=== PATIENT | female | born 1990 | race Caucasian/White ===

== ENCOUNTER 2016-11-25 13:53 | Inpatient (IN) | payer MEDICARE ==
--- NOTE | ~2016-11-25 | PN ---
Unit #: [id number] #: [id number] Patient: AISLINN MATTSON [id number] [facility] [address] [place] [address] [id number] MR#: [id number] NAME: AISLINN MATTSON ROOM: 30 Age: 26 Sex: F Admission Date: 11/25/2016 : 1990 Attending Physician: Benjy Pierre M.D. Admitting Physician: Benjy Pierre M.D. Primary Care Physician: Primary Care Physician Michelle CARRILLO NOTES DATE 12/09/2016 DISCUSSION The patient is more dysphoric and anxious when seen today. She continues to express concerns regarding her post discharge disposition. She states that she is working assiduously with her social media content specialist Mr. Amaro on this issue. She continues to endorse positive suicidal ideation and requested medications adjustment. I have explained to the patient that I do not plan to make a change in medications at this point as her symptoms seem to be more reactive in nature than ones which would be responsive to medication adjustment. Dictated by... Benjy Pierre M.D. CB/ny TD: 12/09/2016 15:48 JOB #: [id number] AMPARO CARRILLO NOTES Page 1 of 1 X Benjy Pierre MD PROGRESS NOTE
--- NOTE | ~2016-11-25 | PN ---
Unit #: [id number] #: [id number] Patient: AISLINN MATTSON [id number] [facility] [address] [place] [address] [id number] MR#: [id number] NAME: AISLINN MATTSON ROOM: 30 Age: 26 Sex: F Admission Date: 11/25/2016 : 1990 Attending Physician: Benjy Pierre M.D. Admitting Physician: Benjy Pierre M.D. Primary Care Physician: Primary Care Physician Michelle CHRISTENSEN PROGRESS NOTES DATE 12/01/2016 DISCUSSION The patient is abed today. She continues to complain of dysphoric mood secondary to financial stressors related to her disability. We will ask the patient to discuss the situation with her social media developer. We have redirected her expectations regarding what this facility can do with regards to this situation. Dictated by... Benjy Pierre M.D. CB/jose TD: 12/01/2016 18:43 JOB #: [id number] AMPARO CARRILLO NOTES Page 1 of 1 X Benjy Pierre MD PROGRESS NOTE
--- NOTE | ~2016-11-25 | PN ---
Unit #: [id number] #: [id number] Patient: AISLINN MATTSON [id number] [facility] [address] [place] [address] [id number] MR#: [id number] NAME: AISLINN MATTSON ROOM: P201 Age: 26 Sex: F Admission Date: 11/25/2016 : 1990 Attending Physician: Benjy Pierre M.D. Admitting Physician: Benjy Pierre M.D. Primary Care Physician: Primary Care Physician Michelle CHRISTENSEN PROGRESS NOTES DATE 11/28/2016 DISCUSSION The patient is active within the therapeutic milieu and is a bit brighter when seen today. She continues to express grave concerns regarding her current homeless status and is making assiduous efforts for his fdc house placement. She is continuing to voice some thoughts of suicide secondary to her current homeless situation. Dictated by... Benjy Pierre M.D. CB/antoinette TD: 11/29/2016 08:01 JOB #: [id number] [facility] PROGRESS NOTES X Benjy Pierre MD PROGRESS NOTE
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
--- NOTE | ~2016-11-25 | PN ---
Unit #: [id number] #: [id number] Patient: AISLINN MATTSON [id number] [facility] [address] [place] [address] [id number] I MR#: [id number] NAME: AISLINN MATTSON ROOM: 30 Age: 26 Sex: F Admission Date: 11/25/2016 : 1990 Attending Physician: Benjy Pierre M.D. Admitting Physician: Benjy Pierre M.D. Primary Care Physician: Primary Care Physician Michelle CARRILLO NOTES DATE 12/07/2016 DISCUSSION The patient continues to complain of dysphoric mood. She is also today complaining of severe constipation and possible symptoms of vaginitis. I will ask for a medical consult related to these issues. Suicidal precautions remain in place as the patient continues to endorse positive suicidal thinking. Dictated by... Benjy Pierre M.D. CB/jose TD: 12/08/2016 02:07 JOB #: [id number] AMPAR[facility] CARRILLO NOTES Page 1 of 1 X Benjy Pierre MD PROGRESS NOTE
--- NOTE | ~2016-11-25 | PN ---
Unit #: [id number] #: [id number] Patient: AISLINN MATTSON [id number] [facility] [address] [place] [address] [id number] I MR#: [id number] NAME: AISLINN MATTSON ROOM: 30 Age: 26 Sex: F Admission Date: 11/25/2016 : 1990 Attending Physician: Benjy Pierre M.D. Admitting Physician: Benjy Pierre M.D. Primary Care Physician: Primary Care Physician Michelle CARRILLO NOTES DATE 12/03/2016 DISCUSSION The patient had an episode this morning wherein she was demanding medication for anxiety and agitation. Instead, the patient was informed that she could go to the quiet room and continue to scream and yell which she did without incident. I have spoken today with the patient regarding her expectations, and every mood be mitigated with medication, and she seems strangely accepting of this. She has done some work with her social insurance adviser regarding possible disposition options, and discharge could take place as early as tomorrow. Dictated by... Benjy Pierre M.D. CB/antoinette TD: 12/03/2016 14:44 JOB #: [id number] [facility] PROGRESS NOTES Page 1 of 1 X Benjy Pierre MD PROGRESS NOTE
--- NOTE | ~2016-11-25 | DS ---
Unit #: [id number] #: [id number] Patient: AISLINN MATTSON [id number] [facility] [address] [place] [address] [id number] I MR#: [id number] NAME: AISLINN MATTSON ROOM: P106 Age: 26 Sex: F Admission Date: 11/25/2016 : 1990 Discharge Date: Attending Physician: Benjy Pierre M.D. Primary Care Physician: Primary Care Physician No DISCHARGE SUMMARY REASON FOR ADMISSION The patient is a 26-year-old white female, admitted to the hospital complaining of increasing auditory hallucinations and suicidal thinking. HOSPITAL COURSE The patient was admitted to the [facility] and placed on suicide precautions. She was continued on previously prescribed medications including Neurontin, Vistaril, Seroquel, Lamictal, Symbicort, Proventil, Claritin, and melatonin. Lamictal was eventually titrated to a final dose of 200 mg at h.s. and Seroquel titrated to a final dose of 100 mg b.i.d. and 400 mg at h.s. The patient's behavior remained difficult while hospitalized. There was significant concern that the patient was fabricating symptoms including auditory hallucinations in order to extend her stay in the hospital given the fact that she has been unable financially to afford housing outside the hospital. On several occasions, the patient required holds and room lockout, and transfer to the [address] [place] [address] became necessary. Room lockout was ordered on 12/11/2016 as the patient was showing absolutely no progress towards discharge and was continued to complain of auditory hallucinations. On 12/13/2016, the patient reported that was much much brighter. She denied suicidal ideation and stated that she had made arrangements for housing outside the hospital. She was not at that point felt to meet criteria for involuntary hospitalization. As per her request, discharge was ordered. FINAL DIAGNOSES Bipolar disorder, depressed phase; alcohol use disorder; opioid use disorder; borderline personality disorder. Asthma and environmental allergies. DISPOSITION ON DISCHARGE The patient is discharged on the following medications: Seroquel 100 mg b.i.d., 400 mg at bedtime for mood stabilization; Lamictal 200 mg at bedtime for mood stabilization; Flagyl 500 mg b.i.d. for vaginitis; MiraLAX 17 g daily for constipation; Neurontin 800 mg q.i.d. for mood stabilization; Proventil HFA 2 puffs q.4 hours p.r.n. shortness of air; melatonin 6 mg at h.s. p.r.n. insomnia; Claritin 10 mg once daily for environmental allergies; Symbicort 2 puffs b.i.d. for shortness of air; Colace 100 mg daily for constipation; and Vistaril 50 mg q.6 hours p.r.n. anxiety. DISCHARGE INSTRUCTIONS No dietary or physical restrictions were placed upon the patient at the time of discharge. Unit #: [id number] #: [id number] Patient: AISLINN MATTSON FOLLOWUP Followup will take place through the auspices of community mental health resources. PROGNOSIS The patient's prognosis is considered somewhat guarded, given her lack of resources, lack of community support, and profound characterologic pathology coupled with less than optimal coping skills and intelligence. Dictated by... Benjy Pierre M.D. CB/lula TD: 12/13/2016 18:14 JOB #: [id number] DISCHARGE SUMMARY Page 1 of 1 X Benjy Pierre MD X DISCHARGE SUMMARY
--- NOTE | ~2016-11-25 | PN ---
Unit #: [id number] #: [id number] Patient: AISLINN MATTSON [id number] [facility] [address] [place] [address] [id number] I MR#: [id number] NAME: AISLINN MATTSON ROOM: 30 Age: 26 Sex: F Admission Date: 11/25/2016 : 1990 Attending Physician: Benjy Pierre M.D. Admitting Physician: Benjy Pierre M.D. Primary Care Physician: Primary Care Physician Michelle CHRISTENSEN PROGRESS NOTES DATE 12/05/2016 DISCUSSION The patient continues to lament her living and financial situations. She reports that she is working with her social services coordinator regarding possible placement in a half-way or other supervised facility but continues to lament the financial obligations inherent therein. She continues to endorse positive suicidal ideation, and her participation within therapeutic milieu remains poor. I have again confronted the patient today regarding her frequent napping and the deleterious effect that it is having on her nighttime sleep. Dictated by... Benjy Pierre M.D. CB/antoinette TD: 12/05/2016 14:50 JOB #: [id number] [facility] PROGRESS NOTES Page 1 of 1 X Benjy Pierre MD PROGRESS NOTE
--- NOTE | ~2016-11-25 | CO ---
Unit #: [id number] #: [id number] Patient: AISLINN MATTSON [id number] [place] [address] [id number] MR#: [id number] NAME: AISLINN MATTSON ROOM: 30 Age: 26 Sex: F Admission Date: 11/25/2016 : 1990 Attending Physician: Benjy Pierre M.D. Primary Care Physician: Primary Care Physician No Consultation Date: 12/07/2016 CONSULTATION REPORT ORDERING PROVIDER Dr. Pierre. REASON FOR CONSULTATION Vaginitis and constipation. SUBJECTIVE The patient reports that she has had vaginal odor off and on for 3 days with yellowish discharge. She has a history of herpes, but no other sexually transmitted infections. She denies itching or burning, and has no urinary complaints. She does not douche. She reports that she has several sexual partners. The patient also reports a history of constipation and she frequently has to use laxatives to have a bowel movement. She has not had a bowel movement in 3 days. OBJECTIVE Vaginal examination was deferred. ASSESSMENT 1. Vaginitis. 2. Constipation. PLAN Plan is to get a urine gonorrhea and chlamydia and start the patient on Flagyl. We will also do MiraLAX for her constipation. Dictated by... Geneva Leonardo A.P.R.N. for Christina Mcmahan/lula TD: 12/07/2016 20:47 JOB #: [id number] Unit #: [id number] #: [id number] Patient: AISLINN MATTSON CONSULTATION REPORT Page 1 of 1 X GENEVA LEONARDO APRN CONSULTATION REPORT
--- NOTE | ~2016-11-25 | PN ---
Unit #: [id number] #: [id number] Patient: AISLINN MATTSON [id number] [facility] [address] [place] [address] [id number] MR#: [id number] NAME: AISLINN MATTSON ROOM: 30 Age: 26 Sex: F Admission Date: 11/25/2016 : 1990 Attending Physician: Benjy Pierre M.D. Admitting Physician: Benjy Pierre M.D. Primary Care Physician: Primary Care Physician Michelle CHRISTENSEN PROGRESS NOTES DATE 12/06/2016 DISCUSSION The patient continues to complain of anxiety, poor sleep and hopelessness related to her disposition situation. She continues to endorse positive suicidal ideation. Realistic expectations of inpatient care are discussed with the patient today. Dictated by... Benjy Pierre M.D. CB/ny TD: 12/06/2016 15:34 JOB #: [id number] [facility] PROGRESS NOTES Page 1 of 1 X Benjy Pierre MD PROGRESS NOTE
--- NOTE | ~2016-11-25 | PN ---
Unit #: [id number] #: [id number] Patient: AISLINN MATTSON [id number] [facility] [address] [place] [address] [id number] MR#: [id number] NAME: AISLINN MATTSON ROOM: 30 Age: 26 Sex: F Admission Date: 11/25/2016 : 1990 Attending Physician: Benjy Pierre M.D. Admitting Physician: Benjy Pierre M.D. Primary Care Physician: Primary Care Physician Michelle CHRISTENSEN PROGRESS NOTES DATE 12/04/2016 DISCUSSION The patient continues to express frustration and dysphoric mood and hopelessness related to her frustrations with her inability to gain housing. She continues to endorse positive suicidal ideation. She requests an increase in Lamictal 200 mg a day, and this will be so ordered. Suicide precautions remain in place. Dictated by... Benjy Pierre M.D. CB/antoinette TD: 12/04/2016 14:43 JOB #: [id number] [facility] PROGRESS NOTES Page 1 of 1 X Benjy Pierre MD PROGRESS NOTE
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
--- NOTE | ~2016-11-25 | PA ---
Unit #: [id number] #: [id number] Patient: AISLINN MATTSON [id number] [facility] [address] [place] [address] [id number] MR#: [id number] NAME: AISLINN MATTSON ROOM: P252 Age: 26 Sex: F Admission Date: 11/25/2016 : 1990 Date of Assessment: 11/26/2016 Attending Physician: Benjy Pierre M.D. Admitting Physician: Benjy Pierre M.D. Primary Care Physician: Primary Care Physician No PSYCHIATRIC ASSESSMENT IDENTIFYING INFORMATION The patient is a 26-year-old single white female, admitted in transfer from [facility] reporting suicidal ideation. INFORMANT(S) Patient, reliability is fair. CHIEF COMPLAINT "I haven't been honest with my caretakers." HISTORY OF PRESENT ILLNESS The patient is a 26-year-old white female, admitted to the [address] [place] [address] unit after she had presented to [facility] voicing positive suicidal ideation. The patient reports that she has been off of her medicines for some time although she claims to have been out of Lamictal for only "three days." She reports that she had recently been prescribed Latuda but reports that this medication had caused intolerable nausea and that she had stopped the medication. The patient reports that she has been using alcohol and "just about anything I can get my hands on since outside the hospital" and has been less than optimally truthful with previous providers including this provider regarding her substance use. The patient's current psychotropic medications include, Lamictal, Seroquel, Neurontin, Symbicort, Proventil, Claritin, melatonin, and Vistaril. For a more complete history of present illness please refer to previously dictated notes. PAST PSYCHIATRIC HISTORY Reviewed and no changes. PAST MEDICAL HISTORY Reviewed and no changes. MEDICATIONS 1. Melatonin 2. Seroquel 3. Symbicort 4. Proventil HFA 5. Claritin 6. Melatonin 7. Vistaril ALLERGIES Topamax and lithium. Unit #: [id number] #: [id number] Patient: AISLINN MATTSON FAMILY HISTORY Noncontributory. SOCIAL HISTORY The patient is currently homeless. She reports substance use as noted previously, and is a smoker. MENTAL STATUS EXAM At this time reveals the patient to be an obese white female, appearing her stated age. She is in no apparent physical distress at the time of the examination. She is awake, alert, and oriented in all spheres. Her mood is dysphoric. Her affect constricted. Speech is generally relevant and coherent. There are no gross deficits to memory or cognition noted. Intelligence is judged to be in the average range based on fund of knowledge. The patient is cooperative during the interview. She is currently endorsing positive suicidal ideation. She denies homicidal ideation. She denies any psychotic symptoms. Her judgment and insight appear to be at baseline. ASSETS To be assessed. LIABILITIES Lack of resources, homelessness, and ongoing substance use. DIAGNOSTIC IMPRESSION [place] I: Bipolar disorder, depressed phase. Alcohol use disorder. Opioid use disorder. [place] II: Borderline personality disorder. [place] III: Asthma. Environmental allergies. TREATMENT PLAN We will restart the patient's prior medications. I have spoken today frankly with the patient regarding the danger of increasing her Lamictal as she has been off the medication for more than five days. She assures this physician that she has only been off the medication for three days. We will, therefore go ahead and increase the Lamictal to 150 mg and continuing other previously prescribed medications. I will move the patient to a unit where she can undergo drug and alcohol counseling and suicide precautions remain in place. ESTIMATED LENGTH OF STAY IN THE HOSPITAL [id number] days. Dictated by... Benjy Pierre M.D. BARTOLO/cindy TD: 11/26/2016 12:25 JOB #: [id number] Unit #: [id number] #: [id number] Patient: AISLINN MATTSON PSYCHIATRIC ASSESSMENT X Benjy Pierre MD X PSYCHIATRIC ASSESSMENT
--- NOTE | ~2016-11-25 | PN ---
Unit #: [id number] #: [id number] Patient: AISLINN MATTSON [id number] [facility] [address] [place] [address] [id number] I MR#: [id number] NAME: AISLINN MATTSON ROOM: [facility] Age: 26 Sex: F Admission Date: 11/25/2016 : 1990 Attending Physician: Benjy Pierre M.D. Admitting Physician: Benjy Pierre M.D. Primary Care Physician: Primary Care Physician Michelle CHRISTENSEN PROGRESS NOTES DATE 12/12/2016 DISCUSSION The patient is now in room lockout precautions. She continues to endorse positive auditory hallucinations and suicidal ideation. She continues to express apprehension regarding her lack of disposition outside of this facility and the financial stressors related thereto. Dictated by... Benjy Pierre M.D. CB/ny TD: 12/12/2016 15:02 JOB #: [id number] [facility] PROGRESS NOTES Page 1 of 1 X Benjy Pierre MD PROGRESS NOTE
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
--- NOTE | ~2016-11-25 | PN ---
Unit #: [id number] #: [id number] Patient: AISLINN MATTSON [id number] [facility] [address] [place] [address] [id number] MR#: [id number] NAME: AISLINN MATTSON ROOM: [facility] Age: 26 Sex: F Admission Date: 11/25/2016 : 1990 Attending Physician: Benjy Pierre M.D. Admitting Physician: Benjy Pierre M.D. Primary Care Physician: Primary Care Physician Michelle CHRISTENSEN PROGRESS NOTES DATE 12/14/2016 DISCUSSION The patient expresses anger today that she was not allowed to leave the hospital yesterday in circumstances described in the addendum to the discharge summary previously dictated. I will ask the patient's social media content specialist to meet with her again tomorrow regarding disposition options and will not look to extend her hospital stay beyond it tomorrow. Dictated by... Benjy Pierre M.D. CB/jose TD: 12/14/2016 21:45 JOB #: [id number] [facility] PROGRESS NOTES Page 1 of 1 X Benjy Pierre MD X PROGRESS NOTE
--- NOTE | ~2016-11-25 | PN ---
Unit #: [id number] #: [id number] Patient: AISLINN MATTSON [id number] [facility] [address] [place] [address] [id number] I MR#: [id number] NAME: AISLINN MATTSON ROOM: P130 Age: 26 Sex: F Admission Date: 11/25/2016 : 1990 Attending Physician: Benjy Pierre M.D. Admitting Physician: Benjy Pierre M.D. Primary Care Physician: Primary Care Physician Michelle CARRILLO NOTES DATE 12/10/2016 DISCUSSION The patient is abed, tearful, and sobbing today over her feelings that she will have nowhere to go when discharged. I have discussed the patient's case with (1) ___ today, and he has explained to me that the patient's financial situation is one which will not support the living situation which the patient is demanding. I have gently confronted the patient regarding this. The patient is complaining that she is having "some more psychosis" and requests an increase in her Seroquel as she is already taking 600 mg daily in a divided dose. I do not look to increase this medication. Dictated by... Benjy Pierre M.D. CB/antoinette TD: 12/10/2016 14:28 JOB #: [id number] [facility] CARRILLO NOTES Page 1 of 1 X Benjy Pierre MD PROGRESS NOTE
--- NOTE | ~2016-11-25 | PN ---
Unit #: [id number] #: [id number] Patient: AISLINN MATTSON [id number] [facility] [address] [place] [address] [id number] MR#: [id number] NAME: AISLINN MATTSON ROOM: 30 Age: 26 Sex: F Admission Date: 11/25/2016 : 1990 Attending Physician: Benjy Pierre M.D. Admitting Physician: Benjy Pierre M.D. Primary Care Physician: Primary Care Physician Michelle CHRISTENSEN PROGRESS NOTES DATE 12/02/2016 DISCUSSION The patient is more active within the therapeutic milieu but remains hopeless regarding her financial and disposition situations. I have asked her secondary social studies teacher to see her regarding but have redirected her expectations of inpatient care. She continues to endorse positive suicidal ideation, but it is doubtful that further psychotropic medication changes will be undertaken at least in the perceivable future. Dictated by... Benjy Pierre M.D. CB/bzg TD: 12/02/2016 14:30 JOB #: [id number] [facility] PROGRESS NOTES Page 1 of 1 X Benjy Pierre MD X PROGRESS NOTE
--- NOTE | ~2016-11-25 | DS ---
Unit #: [id number] #: [id number] Patient: AISLINN MATTSON [id number] [facility] [address] [place] [address] [id number] MR#: [id number] NAME: AISLINN MATTSON ROOM: [facility] Age: Sex: F Admission Date: 11/25/2016 : 1990 Discharge Date: Attending Physician: Benjy Pierre M.D. DISCHARGE SUMMARY NOTE: Please verify if this is addendum to d/c summary or to progress note as at beginning he says d/c summary and at end of note he says progress note. Also, he does not give any dates. ADDENDUM On further exploration of the patient's disposition planning it was learned that she had obtained housing from a number she obtained on [employer] list. Staff investigated and found that this supposed individual has 3 other listings with different addresses obviously bringing into question concerns regarding the patient's safety. Accordingly, the patient's discharge has been held at this time as it is my feeling that she is incapable of making an informed decision regarding disposition under these circumstances. Dictated by... Benjy Pierre M.D. CB/ny TD: 12/13/2016 17:27 JOB #: [id number] DISCHARGE SUMMARY Page 1 of 1 X Benjy Pierre MD X DISCHARGE SUMMARY
--- NOTE | ~2016-11-25 | A ---
[facility] Nutrition Therapy DATE: 12/05/16 Patient: AISLINN MATTSON Physician: SOLOMON Address: NO PERMANENT ADDRESS Room/Bed: [address], Zip: [place] [address] Admit Date: 11/25/16 Date of : [birth year] Height: Weight: 199 90.7184 NUTRITIONAL ASSESSMENT: REASON: LENGTH OF STAY PATIENT ADMITTED FOR DEPRESSION AND SI PMH: ASTHMA, GERD Anthropometrics: HT: 5'5", WT: 200#, BMI: 33, %IBW: 160 Labs: 11/26/16- BUN: 8 Meds: SEROQUEL, MELATONIN, NEURONTIN, VISTARIL Assessment: CHART REVIEWED, EVENTS NOTED. PATIENT IS A 26 Y/O FEMALE ADMITTED FOR DEPRESSION AND SI. PATIENT IS CURRENTLY ON SSI, HOMELESS, SMOKES 1 PPD, AND HAS FREQUENT USE OF ETOH, MARIJUANA, AMPHETAMINES, PRESCRIPTION PILLS, AND COCAINE. UPON ADMIT PATIENT STATED A POOR APPETITE WITH AN UNKNOWN AMOUNT OF WEIGHT LOSS. WT HX PER Onavo SHOWS NO WEIGHT CHANGE X LAST 4 MONTHS. NURSING REPORTS CONSISTENTLY GOOD PO INTAKES. PATIENT HAS BEEN NON-COMPLIANT WITH PSYCH MEDICATIONS PRIOR TO ADMIT. RD ASSESSED PATIENT 08/11/16- NOTE REVIEWED. THERE ARE NO SKIN OR GI ISSUES NOTED ATT. PATIENT IS ON A REGULAR DIET. CURRENT PSYCH MEDS MAY CAUSE FLUCTUATIONS IN WEIGHT AND APPETITE. Dx: NO NUTRITION DX Intervention: 1. REGULAR DIET, 2. MEDS PER MD, 3. PSYCH Monitoring, Evaluation and Goals: 1. ADEQUATE PO INTAKES >50% OF MEALS 2. PREVENT, CORRECT MICRO/MACRO NUTRIENT DEFICIENCIES MONITOR: WEIGHTS, LABS, PO/FLUID INTAKES Recommendations: 1. CONTINUE REGULAR DIET TOLERATED 2. ENCOURAGE ADEQUATE PO AND FLUID INTKAES RD TO F/U PER PROTOCOL AND PRN R/T PATIENT NOT AT NUTRITIONAL RISK ATT [facility] Nutrition Therapy DATE: 12/05/16 Patient: AISLINN MATTSON Physician: SOLOMON Address: NO PERMANENT ADDRESS Room/Bed: [address], Zip: [place] [address] Admit Date: 11/25/16 Date of : 90 Height: Weight: 199 90.7184 Respectfully, MARTINE DUNHAM, RD, LD [facility] cc: client file
--- NOTE | ~2016-11-25 | PN ---
Unit #: [id number] #: [id number] Patient: AISLINN MATTSON [id number] [facility] [address] [place] [address] [id number] I MR#: [id number] NAME: AISLINN MATTSON ROOM: P201 Age: 26 Sex: F Admission Date: 11/25/2016 : 1990 Attending Physician: Benjy Pierre M.D. Admitting Physician: Benjy Pierre M.D. Primary Care Physician: Primary Care Physician Michelle CARRILLO NOTES DATE 11/29/2016 DISCUSSION The patient is abed resting comfortably today. Staff reports no management issues and reports that the patient's participation within the therapeutic milieu has been reasonably good. Dictated by... Benjy Pierre M.D. CB/bzg TD: 11/29/2016 14:29 JOB #: [id number] AMPARO CARRILLO NOTES X Benjy Pierre MD X PROGRESS NOTE
--- NOTE | ~2016-11-25 | PN ---
Unit #: [id number] #: [id number] Patient: AISLINN MATTSON [id number] [facility] [address] [place] [address] [id number] I MR#: [id number] NAME: AISLINN MATTSON ROOM: P130 Age: 26 Sex: F Admission Date: 11/25/2016 : 1990 Attending Physician: Benjy Pierre M.D. Admitting Physician: Benjy Pierre M.D. Primary Care Physician: Primary Care Physician Michelle CHRISTENSEN PROGRESS NOTES DATE 12/08/2016 DISCUSSION The patient is a bit brighter today. She continues to lament her financial and housing stressors and continues to endorse positive suicidal ideation. Dictated by... Benjy Pierre M.D. CB/jose TD: 12/09/2016 00:52 JOB #: [id number] AMPARO PROGRESS NOTES Page 1 of 1 X eBnjy Pierre MD X PROGRESS NOTE
--- NOTE | ~2016-11-25 | HP ---
Unit #: [id number] #: [id number] Patient: HAYLIE MATTSON [id number] [place] [address] [id number] I MR#: [id number] NAME: HAYLIE MATTSON ROOM: P252 Age: 26 Sex: F Admission Date: 11/25/2016 : 1990 Attending Physician: Benjy Pierre M.D. Admitting Physician: Benjy Pierre M.D. Primary Care Physician: Primary Care Physician No HISTORY AND PHYSICAL HISTORY OF PRESENT ILLNESS Haylie is a 26 year old admitted to [address] [place] [address] with increased paranoia. She has been noncompliant with her psychiatric medications. PAST MEDICAL HISTORY 1. Asthma. 2. GERD. 3. Morbid obesity. PAST SURGICAL HISTORY Nothing reported. ALLERGIES No known drug allergies. SOCIAL HISTORY Smokes one-half packs per day. Denies alcohol and illicit drug use. FAMILY HISTORY Medically noncontributory. REVIEW OF SYSTEMS She does not answer questions appropriately. She is belligerent and uncooperative. There are no reports of nausea, vomiting, or diarrhea. She has no cough or increased temperature. CURRENT MEDICATIONS 1. Claritin 10 mg q. day. 2. Melatonin 6 mg q. day. 3. Lamictal 100 mg q.h.s. 4. Seroquel 400 mg q.h.s. 5. Neurontin 800 mg q.i.d. 6. Proventil inhaler p.r.n. 7. Vistaril p.r.n. 8. Milk of Magnesia p.r.n. 9. Maalox p.r.n. 10. Tylenol p.r.n. 11. Nicotine patch 14 mg q. day. PHYSICAL EXAMINATION GENERAL: Alert, well nourished. No apparent distress. VITAL SIGNS: Blood pressure 130/76, heart rate 100, respirations 16, and temperature 98.6. Unit #: [id number] #: [id number] Patient: HAYLIE MATTSON WEIGHT: 200. HEIGHT: 5 feet 5 inches. SKIN: Warm and dry without rash or lesion. HEENT: Normocephalic. TMs not viewed. Oral and nasal passages clear. Conjunctivae clear. PERRLA. EOMs intact. NECK: Supple without lymphadenopathy or thyromegaly. HEART: Regular rate and rhythm without murmur. LUNGS: Clear. ABDOMEN: Soft, nontender. : Not done. EXTREMITIES: No evidence of cyanosis, clubbing or edema. Moves all without focal deficit. NEUROLOGICAL: Unable to complete extended exam because she does not cooperate. She does move all extremities without focal deficit. Hand medical transcription is equal and gait is normal. IMPRESSION Psychiatric admission. RECOMMENDATIONS PSYCHIATRIC: Per psychiatrist. MEDICAL: I see no contraindication to participate in this facility's activities. MEDICAL PROGNOSIS Good. MEDICAL CONDITION Stable. Dictated by... Yaz Duarte P.A.-C. for Christina Mcmahan/antoinette TD: 11/26/2016 12:06 JOB #: [id number] HISTORY AND PHYSICAL X Yaz Duarte X HISTORY AND PHYSICAL
--- NOTE | ~2016-11-25 | PN ---
Unit #: [id number] #: [id number] Patient: AISLINN MATTSON [id number] [facility] [address] [place] [address] [id number] I MR#: [id number] NAME: AISLINN MATTSON ROOM: P257 Age: 26 Sex: F Admission Date: 11/25/2016 : 1990 Attending Physician: Benjy Pierre M.D. Admitting Physician: Benjy Pierre M.D. Primary Care Physician: Primary Care Physician Michelle CHRISTENSEN PROGRESS NOTES DATE 11/27/2016 DISCUSSION The patient had an episode yesterday where we were concerned that we would require p.r.n. Geodon. However, she calmed without too much incident, and that p.r.n. was deemed unnecessary and discontinued. When seen today, the patient continues to express concern regarding her current homeless situation as well as ongoing substance abuse. She exhibits little in the way of signs or symptoms of withdrawal but does continue to endorse positive suicidal ideation. Dictated by... Benjy Pierre M.D. CB/antoinette TD: 11/27/2016 14:32 JOB #: [id number] AMPARO PROGRESS NOTES X Benjy Pierre MD PROGRESS NOTE
[~2016-11-25 13:53] MED LIST: ALBUTEROL17 GM INH; ARIPIPRAZOLE15 MG PO; BENZONATATE200 M1 PO; DELTASONE20 MG; DELTASONE20 MG PO; GABAPENTIN800 MG PO; NICORETTE4 MG BC; OLANZAPINE10 MG PO; PREDNISONE PO; SEROQUEL PO; SPIRIVA18 MCG INH; SYMBICORT INH; VENLAFAXINE H37.5 M2 PO; ZYRTEC10 M2 PO
[2016-11-26 12:27] LABS: BASOPHIL% 0.7 % (0-2.5); EOSINOPHIL# 0.1 X10e3 (0-0.7); EOSINOPHIL% 1.4 % (0.0-7.0); HEMATOCRIT 43.7 % (35.0-45.0); HEMOGLOBIN 14.3 gm/dL (12.0-16.0); LYMPHOCYTE# 1.5 X10e3 (1.0-3.5); LYMPHOCYTE% 36.7 % (17.0-45.0); MEAN CELL VOLUME 87.6 FL (83-96); MEAN CORPUSCULAR HEMOGLOBIN 28.7 PG (28-34); MEAN CORPUSCULAR HGB CONC 32.7 g/dL (30-36); MONOCYTE# 0.3 X10e3 (0-1.0); MONOCYTE% 8.2 % (3.0-12.0); NEUTROPHIL# 2.2 X10e3 (1.5-7.1); PLATELET COUNT 220 X10e3 (140-420); RED BLOOD COUNT 4.98 X10e (3.90-5.30); RED CELL DISTRIBUTION WIDTH 13.4 % (11.0-15.5); WHITE BLOOD COUNT 4.2 X10e3 (4.0-10.5)
[2016-11-26 12:39] LABS: DIFF IND NO
[2016-11-26 12:53] LABS: ALKALINE PHOSPHATASE 61 U/L (32-92); ALT (SGPT) 22 U/L (10-40); AST (SGOT) 24 U/L (10-42); BILIRUBIN,TOTAL 0.8 mg/dL (0.2-2.0); BLOOD UREA NITROGEN 8 mg/dL (9-23); BUN/CREATININE RATIO 13.33; CALCIUM SERUM 9.6 mg/dL (8.4-10.2); CARBON DIOXIDE 26 mmol/L (22-31); CHLORIDE 104 mmol/L (100-111); CREATININE SERUM 0.6 mg/dL (0.6-1.4); GLOM FILT RATE Estimated ABOVE60 mL/min (>60); GLUCOSE FASTING 92 mg/dL (70-110); POTASSIUM 3.9 mmol/L (3.5-5.1); PROTEIN TOTAL SERUM 6.7 g/dL (6.0-8.3); SODIUM 138 mmol/L (135-145)
[2016-11-26 12:55] LABS: THYROID STIMULATING HORMONE 0.38 uIU/ml (0.34-5.60)
[2016-11-26 13:02] LABS: FREE THYROXIN (T4) 0.78 ng/dL (0.58-1.64)
[2016-11-29 14:31] LABS: URINE APPEARANCE CLEAR; URINE BILIRUBIN NEG (NEG); URINE BLOOD NEG (NEG); URINE COLOR YELLOW; URINE GLUCOSE NEG (NEG); URINE KETONE NEG (NEG); URINE LEUKOCYTE ESTERASE NEG (NEG); URINE NITRATE NEG (NEG); URINE PROTEIN NEG (NEG); URINE SPECIFIC GRAVITY 1.013 (1.003-1.035); URINE UROBILINOGEN 0.2 MG/DL (NEG)
[2016-11-29 14:59] LABS: AMPHETAMINE NEG (NEG); BARBITURATES NEG (NEG); BENZODIAZEPINES NEG (NEG); COCAINE NEG (NEG); MARIJUANA NEG (NEG); OPIATES NEG (NEG); TRICYCLIC ANTIDEPRESSANTS POS (NEG); U METHADONE NEG (NEG)
[2016-12-10 07:31] LABS: CHLAMYDIA TRACH Not Detected (Not Detected); N GONOR Not Detected (Not Detected)
== END 2016-12-15 15:38 | disposition home or self-care (01) | DRG 885 ==
LOC: POF 13:53 → P2L 13:56 → POF 11-26 22:30 → P2L 11-26 22:45 → P2S 11-27 15:45 → P1S 11-29 19:10
PROVIDERS: Family Medicine; Specialist
DX: F31.30 Bipolar disorder, current episode depressed, mild or moderate severity, unspecified (principal); F11.20 Opioid dependence, uncomplicated; F10.20 Alcohol dependence, uncomplicated; F60.3 Borderline personality disorder; J45.909 Unspecified asthma, uncomplicated; K21.9 Gastro-esophageal reflux disease without esophagitis; F17.200 Nicotine dependence, unspecified, uncomplicated; N76.0 Acute vaginitis; K59.00 Constipation, unspecified
CPT/HCPCS: 80053; 80307; 81003; 84439; 84443; 84703; 85025; 87491; 87591; 90688; J3230; J3486

== ENCOUNTER 2017-02-04 | Inpatient (IN) | payer MEDICARE ==
--- NOTE | ~2017-02-04 | DS ---
Unit #: [id number] #: [id number] Patient: AISLINN MATTSON [id number] [facility] [address] [place] [address] [id number] I MR#: [id number] NAME: AISLINN MATTSON ROOM: [facility] Age: 26 Sex: F Admission Date: 02/04/2017 : 1990 Discharge Date: 02/10/2017 Attending Physician: Benjy Pierre M.D. Primary Care Physician: Primary Care Physician No DISCHARGE SUMMARY REASON FOR ADMISSION The patient is a 26-year-old single white female with a history of borderline personality disorder, bipolar disorder, and limited intellectual capacity admitted with recurrent suicidal ideation. HOSPITAL COURSE The patient was admitted to the [address] [place] [address] unit and placed on suicide precautions. Home medications were continued. The patient required several p.r.n. during her brief stay in the hospital, but it had calmed considerably by 02/10/2017. On that date, she reported the physician that she has spoken with Ms. Abbasi regarding possible disposition options, specifically living with her sister. Discharge was as per her request ordered. FINAL DIAGNOSES Bipolar disorder, depressed phase; alcohol use disorder; opioid use disorder; borderline personality disorder; asthma; environmental allergies. DISPOSITION ON DISCHARGE The patient is discharged on the following medications: Thorazine 100 mg q.6 hours p.r.n. severe anxiety, Vistaril 50 mg q.6 hours p.r.n. mild anxiety, Seroquel 100 mg b.i.d. and 400 mg at bedtime for mood stabilization, Lamictal 200 mg at bedtime for mood stabilization, MiraLAX 17 g once daily for constipation, Neurontin 800 mg q.i.d. for anxiety, Proventil HFA 2 puffs q.4 hours p.r.n. shortness of air, Symbicort 2 puffs b.i.d. for shortness of air, melatonin 6 mg at h.s. p.r.n. insomnia, and Claritin 10 mg once daily for environmental allergies. DISCHARGE INSTRUCTIONS No dietary or physical restrictions were placed upon the patient at the time of discharge. FOLLOWUP Followup will take place through the auspices of community mental health resources. PROGNOSIS The patient's prognosis is considered fair. Dictated by... Benjy Pierre M.D. Unit #: [id number] #: [id number] Patient: AISLINN MATTSON BARTOLO/lula TD: 02/10/2017 17:07 JOB #: [id number] DISCHARGE SUMMARY Page 1 of 1 X Benjy Pierre MD X DISCHARGE SUMMARY
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
--- NOTE | ~2017-02-04 | PN ---
Unit #: [id number] #: [id number] Patient: AISLINN MATTSON [id number] [facility] [address] [place] [address] [id number] I MR#: [id number] NAME: AISLINN MATTSON ROOM: P130 Age: 26 Sex: F Admission Date: 02/04/2017 : 1990 Attending Physician: Benjy Pierre M.D. Admitting Physician: Benjy Pierre M.D. Primary Care Physician: Primary Care Physician Michelle CHRISTENSEN PROGRESS NOTES DATE 02/09/2017 DISCUSSION The patient is resting comfortably today and offers no new complaints. Staff reports no further management issues but states that the patient has remained seclusive to room for the most part. Dictated by... Benjy Pierre M.D. CB/jose TD: 02/09/2017 12:24 JOB #: [id number] AMPARO PROGRESS NOTES Page 1 of 1 X Benjy Pierre MD X PROGRESS NOTE
--- NOTE | ~2017-02-04 | PN ---
Unit #: [id number] #: [id number] Patient: AISLINN MATTSON [id number] [facility] [address] [place] [address] [id number] I MR#: [id number] NAME: AISLINN MATTSON ROOM: 30 Age: 26 Sex: F Admission Date: 02/04/2017 : 1990 Attending Physician: Benjy Pierre M.D. Admitting Physician: Benjy Pierre M.D. Primary Care Physician: Primary Care Physician Michelle CHRISTENSEN PROGRESS NOTES DATE 02/08/2017 DISCUSSION The patient is more cooperative today. She is requesting "cough drops". Once again I have spoken with the patient regarding the need for coordination of care between her delinquency prevention social worker at this facility Ms. Abbasi and her outpatient family independence case manager though the patient cooperation with such efforts has not always been optimal. She is reporting reduction in suicidal ideation. Dictated by... Benjy Pierre M.D. CB/jose TD: 02/09/2017 03:24 JOB #: [id number] AMPARO PROGRESS NOTES Page 1 of 1 X Benjy Pierre MD PROGRESS NOTE
--- NOTE | ~2017-02-04 | HP ---
Unit #: [id number] #: [id number] Patient: HAYLIE MATTSON [id number] [place] [address] [id number] I MR#: [id number] NAME: HAYLIE MATTSON ROOM: P130 Age: 26 Sex: F Admission Date: 02/04/2017 : 1990 Attending Physician: Benjy Pierre M.D. Admitting Physician: Benjy Pierre M.D. Primary Care Physician: Primary Care Physician No HISTORY AND PHYSICAL HISTORY OF PRESENT ILLNESS Haylie is a 26 year old admitted to [address] [place] [address] with depression verbalizing wanting to hurt herself. She has had numerous admissions to this facility for treatment of the same. PAST MEDICAL HISTORY 1. Asthma. 2. GERD. 3. Morbid obesity. 4. History of self-harming. PAST SURGICAL HISTORY Nothing reported. ALLERGIES No known drug allergies. SOCIAL HISTORY Smokes 1/2 pack per day. Denies alcohol and illicit drug use. FAMILY HISTORY Medically noncontributory. REVIEW OF SYSTEMS CONSTITUTIONAL: No fever or chills. HEENT: Denies any sore throat, ear pain or runny nose. CARDIOVASCULAR: Denies chest pain, irregular heart rhythm or palpitations. CHEST: Denies shortness of breath or cough. No hemoptysis. GASTROINTESTINAL: Denies nausea, vomiting, diarrhea or chronic constipation. ENDOCRINE: Denies history of increased thirst or urination. No recent significant weight loss or gain. GENITOURINARY: Denies dysuria, frequency, or hematuria. SKIN: Denies any rashes. HEMATOLOGIC: Denies history of increased bleeding or bruising. MUSCULOSKELETAL: Denies any hot, swollen joints. No generalized muscle pain. NEUROLOGIC: Denies problems with vision or speech. No frequent, severe headaches. No numbness, tingling or weakness in any extremities. Denies loss of bladder or bowel control. CURRENT MEDICATIONS 1. Colace 100 mg daily. Unit #: [id number] #: [id number] Patient: HAYLIE MATTSON 2. Claritin 10 mg daily. 3. MiraLAX daily. 4. Lamictal 200 mg q.h.s. 5. Seroquel 400 mg q.h.s. 6. Symbicort 2 puffs b.i.d. 7. Neurontin 800 mg q.i.d. 8. Vistaril p.r.n. 9. Milk of Magnesia p.r.n. 10. Maalox p.r.n. 11. Tylenol p.r.n. 12. Nicotine patch 14 mg daily. PHYSICAL EXAMINATION GENERAL: Alert, obese, in no apparent distress. VITAL SIGNS: Blood pressure 100/54, heart rate 80, respirations 16, temperature 98.6. WEIGHT: 207. HEIGHT: 5 feet 4 inches. SKIN: Warm and dry without rash or lesion. HEENT: Normocephalic. TMs not viewed. Oral and nasal passages clear. Conjunctivae clear. PERRLA. EOMs intact. NECK: Supple without lymphadenopathy or thyromegaly. HEART: Regular rate and rhythm without murmur. LUNGS: Clear. ABDOMEN: Soft, nontender. : Not done. EXTREMITIES: No evidence of cyanosis, clubbing or edema. Moves all without focal deficit. NEUROLOGICAL: Grossly within normal limits. Cranial Nerves: II: Visual mendoza are intact. III, IV AND : Extraocular movements are intact. Pupils are equal, round and reactive to light. V: Facial sensation is grossly normal. VII: Facial movements and expression are normal. VIII: Auditory acuity grossly intact. IX, X: Uvula is midline. Phonation is normal. XI: Patient shrugs shoulders and turns head normally. XII: Tongue protrudes in the midline. Sensory and Motor Function: Sensory and motor sensation is grossly normal. Motor: moves all extremities well. Coordination: Gait is normal. Deep Tendon Reflexes: Intact. IMPRESSION Psychiatric admission. RECOMMENDATIONS PSYCHIATRIC: Per psychiatrist. MEDICAL: See no contraindications to participate in facility's activities. MEDICAL PROGNOSIS Good. MEDICAL CONDITION Stable. Dictated by... Yaz Duarte P.A.-C. for Unit #: [id number] #: [id number] Patient: HAYLIE MATTSON Christina Mcmahan/ny TD: 02/04/2017 22:38 JOB #: [id number] HISTORY AND PHYSICAL Page 1 of 1 X Yaz Duarte X HISTORY AND PHYSICAL
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
--- NOTE | ~2017-02-04 | PN ---
Unit #: [id number] #: [id number] Patient: AISLINN MATTSON [id number] [facility] [address] [place] [address] [id number] MR#: [id number] NAME: AISLINN MATTSON ROOM: 30 Age: 26 Sex: F Admission Date: 02/04/2017 : 1990 Attending Physician: Benjy Pierre M.D. Admitting Physician: Benjy Pierre M.D. Primary Care Physician: Primary Care Physician Michelle CHRISTENSEN PROGRESS NOTES DATE 02/07/2017 DISCUSSION The patient is abed. She remains seclusive to room with little participation within the therapeutic milieu. It is our hope that the patient's case management assistant outside the hospital will be able to work with her certified social workers in health care here with regard to her lack of disposition options. Dictated by... Benjy Pierre M.D. CB/bzg TD: 02/07/2017 13:09 JOB #: [id number] AMPARO PROGRESS NOTES Page 1 of 1 X Benjy Pierre MD PROGRESS NOTE
[2017-02-06 09:54] LABS: BASOPHIL% 0.4 % (0-2.5); EOSINOPHIL# 0.1 X10e3 (0-0.7); HEMOGLOBIN 13.9 gm/dL (12.0-16.0); LYMPHOCYTE# 1.8 X10e3 (1.0-3.5); LYMPHOCYTE% 24.9 % (17.0-45.0); MEAN CORPUSCULAR HEMOGLOBIN 29.2 PG (28-34); MEAN CORPUSCULAR HGB CONC 33.2 g/dL (30-36); MEAN PLATELET VOLUME 8.7 FL (6.5-11.5); MONOCYTE# 0.6 X10e3 (0-1.0); MONOCYTE% 8.5 % (3.0-12.0); NEUTROPHIL# 4.6 X10e3 (1.5-7.1); NEUTROPHIL% 65.2 % (40-75); PLATELET COUNT 188 X10e3 (140-420); RED BLOOD COUNT 4.77 X10e (3.90-5.30); RED CELL DISTRIBUTION WIDTH 13.9 % (11.0-15.5); WHITE BLOOD COUNT 7.1 X10e3 (4.0-10.5)
[2017-02-06 09:55] LABS: DIFF IND NO
[2017-02-06 10:10] LABS: BILIRUBIN,TOTAL 0.8 mg/dL (0.2-2.0); BUN/CREATININE RATIO 13.75; CALCIUM SERUM 9.3 mg/dL (8.4-10.2); CREATININE SERUM 0.8 mg/dL (0.6-1.4); GLOM FILT RATE Estimated 101.8 mL/min (>60); POTASSIUM 4.3 mmol/L (3.5-5.1); PROTEIN TOTAL SERUM 6.7 g/dL (6.0-8.3)
== END 2017-02-10 15:00 | disposition home or self-care (01) | DRG 885 ==
LOC: P1S 04:48 → P1E 04:48 → P1S 14:43
PROVIDERS: Specialist
DX: F31.30 Bipolar disorder, current episode depressed, mild or moderate severity, unspecified (principal); F11.20 Opioid dependence, uncomplicated; R45.851 Suicidal ideations; F10.20 Alcohol dependence, uncomplicated; F60.3 Borderline personality disorder; J45.909 Unspecified asthma, uncomplicated; K21.9 Gastro-esophageal reflux disease without esophagitis; E66.01 Morbid (severe) obesity due to excess calories; F17.210 Nicotine dependence, cigarettes, uncomplicated
CPT/HCPCS: 80053; 80307; 81003; 84703; 85025; 87086; 94640; 99285; G0480; J1200; J1630; J2060; J3230

== ENCOUNTER 2017-02-22 16:26 | Emergency (ER) | payer MEDICARE, OTHER ==
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
[2017-02-22 20:47] LABS: URINE SOURCE CLEAN CATCH
[2017-02-22 20:52] LABS: BASOPHIL% 0.4 % (0-2.5); EOSINOPHIL% 0.3 % (0.0-7.0); HEMATOCRIT 43.8 % (35.0-45.0); HEMOGLOBIN 14.5 gm/dL (12.0-16.0); LYMPHOCYTE# 1.5 X10e3 (1.0-3.5); LYMPHOCYTE% 14.5 % (17.0-45.0); MEAN CORPUSCULAR HEMOGLOBIN 29.2 PG (28-34); MEAN CORPUSCULAR HGB CONC 33.2 g/dL (30-36); MEAN PLATELET VOLUME 8.2 FL (6.5-11.5); MONOCYTE# 0.7 X10e3 (0-1.0); NEUTROPHIL# 8.1 X10e3 (1.5-7.1); NEUTROPHIL% 77.8 % (40-75); PLATELET COUNT 311 X10e3 (140-420); RED BLOOD COUNT 4.98 X10e (3.90-5.30); RED CELL DISTRIBUTION WIDTH 14.2 % (11.0-15.5); WHITE BLOOD COUNT 10.4 X10e3 (4.0-10.5)
[2017-02-22 20:52] LABS: URINE APPEARANCE CLEAR; URINE BILIRUBIN NEG (NEG); URINE BLOOD NEG (NEG); URINE COLOR YELLOW; URINE GLUCOSE NEG (NEG); URINE KETONE NEG (NEG); URINE LEUKOCYTE ESTERASE NEG (NEG); URINE NITRATE NEG (NEG); URINE PH 7.5 (5-8); URINE PROTEIN 1+ (NEG); URINE SPECIFIC GRAVITY 1.027 (1.003-1.035)
[2017-02-22 20:54] LABS: DIFF IND NO
[2017-02-22 20:55] LABS: URINE BACTERIA AUWI NEG (NEGATIVE); URINE SQUAMOUS EPITHELIAL CELL NONE SEEN /[HPF]; UWBCS1 AUWI 0-2 (0-5)
[2017-02-22 20:56] LABS: CULTURE INDICATED? NO
[2017-02-22 21:01] LABS: AMPHETAMINE NEG (NEG); BARBITURATES NEG (NEG); BENZODIAZEPINES POS (NEG); COCAINE NEG (NEG); MARIJUANA POS (NEG); OPIATES NEG (NEG); TRICYCLIC ANTIDEPRESSANTS POS (NEG); U METHADONE NEG (NEG)
[2017-02-22 21:13] LABS: ALBUMIN SERUM 4.7 g/dL (3.5-5.0); ALKALINE PHOSPHATASE 72 U/L (32-92); ALT (SGPT) 18 U/L (10-40); AST (SGOT) 23 U/L (10-42); BILIRUBIN, DIRECT 0.1 mg/dL (0.0-0.2); BILIRUBIN,INDIRECT 0.2 mg/dL (0.0-0.9); BILIRUBIN,TOTAL 0.3 mg/dL (0.2-2.0); BLOOD UREA NITROGEN 9 mg/dL (9-23); BUN/CREATININE RATIO 12.85; CALCIUM SERUM 9.3 mg/dL (8.4-10.2); CARBON DIOXIDE 25 mmol/L (22-31); CHLORIDE 105 mmol/L (100-111); CREATININE SERUM 0.7 mg/dL (0.6-1.4); GLOM FILT RATE Estimated 119.6 mL/min (>60); GLUCOSE FASTING 95 mg/dL (70-110); POTASSIUM 3.5 mmol/L (3.5-5.1); SODIUM 138 mmol/L (135-145)
[2017-02-22 21:16] LABS: ALCOHOL BLOOD <5 mg/dL (0)
== END 2017-02-22 23:30 | disposition home or self-care (01) ==
LOC: CED 16:26
PROVIDERS: Student in an Organized Health Care Education/Training Program
DX: S00.83XA Contusion of other part of head, initial encounter (principal); R11.0 Nausea; J45.909 Unspecified asthma, uncomplicated; F19.10 Other psychoactive substance abuse, uncomplicated; F17.200 Nicotine dependence, unspecified, uncomplicated; Z88.8 Allergy status to other drugs, medicaments and biological substances; X58.XXXA Exposure to other specified factors, initial encounter; Y92.9 Unspecified place or not applicable
CPT/HCPCS: 36415; 70450; 70486; 71010; 80048; 80076; 80307; 81003; 84703; 85025; 96361; 96374; 99284; G0480; J2405

== ENCOUNTER 2017-02-23 01:00 | Inpatient (IN) | payer MEDICARE, OTHER ==
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
--- NOTE | ~2017-02-23 | DS ---
Unit #: [id number] #: [id number] Patient: AISLINN MATTSON [id number] [facility] [address] [place] [address] [id number] I MR#: [id number] NAME: AISLINN MATTSON ROOM: P125 Age: 26 Sex: F Admission Date: 02/23/2017 : 1990 Discharge Date: 03/03/2017 Attending Physician: Benjy Pierre M.D. Primary Care Physician: Generic Doctor Not In System DISCHARGE SUMMARY REASON FOR ADMISSION The patient is a 26-year-old white female, admitted to the [address] [place] [address] unit with recurrent suicidal and homicidal ideation. HOSPITAL COURSE The patient was admitted to the [address] [place] [address] unit and placed on suicide precautions. Home medications were re-initiated including Seroquel, Lamictal, Vistaril, Thorazine, MiraLAX, Neurontin, Proventil, melatonin, and Symbicort. The patient's stay in the hospital was a fairly typical one. She remained seclusive to room with little participation in therapeutic milieu because of some complaints of nightmares. She was begun on Minipress 2 mg at h.s., which she tolerated well. By 03/03/2017, the patient stated that she had made arrangements to stay with her "boyfriend." She was at that point felt to meet criteria for involuntary hospitalization and discharge was ordered, though this physician did express of the patient's concerns about the seeming uncertainty of her discharge living situation. FINAL DIAGNOSES Bipolar disorder, most recent episode depressed; history of traumatic brain injury; obesity. DISPOSITION ON DISCHARGE The patient is discharged on the following medications: Seroquel 100 mg b.i.d. for mood stabilization, 400 mg at bedtime for mood stabilization; Lamictal 200 mg bedtime for mood stabilization; Vistaril 50 mg q.6 hours p.r.n. anxiety; MiraLAX 17 g once daily for constipation; Neurontin 800 mg q.i.d. for mood stabilization; Proventil HFA 2 puffs q.4 hours for asthma; Symbicort 2 puffs b.i.d. for asthma; and Minipress 2 mg at bedtime for nightmares. DISCHARGE INSTRUCTIONS No dietary or physical restrictions were placed upon the patient at the time of discharge. FOLLOWUP Followup will take place through the auspices of community mental health resources. PROGNOSIS The patient's prognosis remains guarded. Unit #: [id number] #: [id number] Patient: AISLINN MATTSON Dictated by... Benjy Pierre M.D. CB/lula TD: 03/03/2017 16:14 JOB #: [id number] DISCHARGE SUMMARY Page 1 of 1 X Benjy Pierre MD X DISCHARGE SUMMARY
--- NOTE | ~2017-02-23 | PN ---
Unit #: [id number] #: [id number] Patient: AISLINN MATTSON [id number] [facility] [address] [place] [address] [id number] I MR#: [id number] NAME: AISLINN MATTSON ROOM: [facility]5 Age: 26 Sex: F Admission Date: 02/23/2017 : 1990 Attending Physician: Benjy Pierre M.D. Admitting Physician: Benjy Pierre M.D. Primary Care Physician: Generic Doctor Not In System [facility] PROGRESS NOTES DATE 02/25/2017 DISCUSSION The patient continues to complain of dysphoric mood, but is a bit brighter today and exhibits some real future orientation citing a wish to go to a residential treatment facility where she can be (1) with issues related to her traumatic brain injury and her history of bipolar disorder. I will ask for social work to see her regarding this. Dictated by... Benjy Pierre M.D. CB/kel TD: 02/26/2017 09:29 JOB #: [id number] [facility] PROGRESS NOTES Page 1 of 1 X Benjy Pierre MD X PROGRESS NOTE
--- NOTE | ~2017-02-23 | PN ---
Unit #: [id number] #: [id number] Patient: AISLINN MATTSON [id number] [facility] [address] [place] [address] [id number] I MR#: [id number] NAME: AISLINN MATTSON ROOM: [facility]5 Age: 26 Sex: F Admission Date: 02/23/2017 : 1990 Attending Physician: Benjy Pierre M.D. Admitting Physician: Benjy Pierre M.D. Primary Care Physician: Generic Doctor Not In System [facility] PROGRESS NOTES DATE 02/27/2017 DISCUSSION The patient reports recurrent auditory hallucinations and suicidal thinking last evening after experiencing what she reports are "rumors being spread by others." She continues to express interest in [facility] and is complaining of constipation. I will ask for a prescription for Colace and I have asked the patient's high school social science teacher to see her regarding a referral to that facility. Dictated by... Benjy Pierre M.D. CB/ny TD: 02/27/2017 16:07 JOB #: [id number] [facility] PROGRESS NOTES Page 1 of 1 X Benjy Pierre MD X PROGRESS NOTE
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
--- NOTE | ~2017-02-23 | PN ---
Unit #: [id number] #: [id number] Patient: AISLINN MATTSON [id number] [facility] [address] [place] [address] [id number] I MR#: [id number] NAME: AISLINN MATTSON ROOM: P125 Age: 26 Sex: F Admission Date: 02/23/2017 : 1990 Attending Physician: Benjy Pierre M.D. Admitting Physician: Benjy Pierre M.D. Primary Care Physician: Generic Doctor Not In System [facility] PROGRESS NOTES DATE 02/24/2017 DISCUSSION The patient remains abed seclusive to her room and is complaining of some grogginess with reinitiation of medications. I have encouraged her to increase her participation within the therapeutic milieu. She continues to endorse hopelessness and suicidal ideation when seen today. Dictated by... Benjy Pierre M.D. CB/jose TD: 02/24/2017 20:14 JOB #: [id number] [facility] PROGRESS NOTES Page 1 of 1 X Benjy Pierre MD PROGRESS NOTE
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
--- NOTE | ~2017-02-23 | PN ---
Unit #: [id number] #: [id number] Patient: AISLINN MATTSON [id number] [facility] [address] [place] [address] [id number] MR#: [id number] NAME: AISLINN MATTSON ROOM: [facility]5 Age: 26 Sex: F Admission Date: 02/23/2017 : 1990 Attending Physician: Benjy Pierre M.D. Admitting Physician: Benjy Pierre M.D. Primary Care Physician: Lola Doctor Not In System [facility] PROGRESS NOTES DATE 02/26/2017 DISCUSSION The patient is in brighter spirits today and is requesting referral to "[facility]." We continue current treatment as the patient continues to show slow and steady improvement. Dictated by... Benjy Pierre M.D. CB/ny TD: 02/26/2017 17:41 JOB #: [id number] [facility] PROGRESS NOTES Page 1 of 1 X Benjy Pierre MD X PROGRESS NOTE
--- NOTE | ~2017-02-23 | PN ---
Unit #: [id number] #: [id number] Patient: AISLINN MATTSON [id number] [facility] [address] [place] [address] [id number] I MR#: [id number] NAME: AISLINN MATTSON ROOM: [facility]5 Age: 26 Sex: F Admission Date: 02/23/2017 : 1990 Attending Physician: Benjy Pierre M.D. Admitting Physician: Benjy Pierre M.D. Primary Care Physician: Lola Doctor Not In System [facility] PROGRESS NOTES DATE 02/28/2017 DISCUSSION The patient is complaining of worsening nightmares. We will add Minipress 1 mg at h.s. She continues to report hopelessness and suicidal ideation. Dictated by... Benjy Pierre M.D. CB/ny TD: 02/28/2017 12:59 JOB #: [id number] [facility] PROGRESS NOTES Page 1 of 1 X Benjy Pierre MD X PROGRESS NOTE
--- NOTE | ~2017-02-23 | PN ---
Unit #: [id number] #: [id number] Patient: AISLINN MATTSON [id number] [facility] [address] [place] [address] [id number] I MR#: [id number] NAME: AISLINN MATTSON ROOM: [facility]5 Age: 26 Sex: F Admission Date: 02/23/2017 : 1990 Attending Physician: Benjy Pierre M.D. Admitting Physician: Benjy Pierre M.D. Primary Care Physician: Lola Doctor Not In System [facility] PROGRESS NOTES DATE 03/01/2017 DISCUSSION The patient is abed resting comfortably today. We continue to work towards disposition with the assistance of the patient's nursing home social worker. Staff reports no management issues. Dictated by... Benjy Pierre M.D. CB/jose TD: 03/01/2017 22:26 JOB #: [id number] [facility] PROGRESS NOTES Page 1 of 1 X Benjy Pierre MD X PROGRESS NOTE
== END 2017-03-03 18:17 | disposition home or self-care (01) | DRG 885 ==
LOC: POF 07:42 → P1S 07:42
DX: F33.9 Major depressive disorder, recurrent, unspecified (principal); R45.851 Suicidal ideations; F10.10 Alcohol abuse, uncomplicated; Z87.820 Personal history of traumatic brain injury; J45.909 Unspecified asthma, uncomplicated; K59.00 Constipation, unspecified; E66.9 Obesity, unspecified
CPT/HCPCS: 36415; 70450; 70486; 71010; 80048; 80076; 80307; 81003; 84703; 85025; 96361; 96374; 99284; G0480; J2405

== ENCOUNTER 2017-03-18 09:57 | Inpatient (IN) | payer MEDICARE, OTHER ==
--- NOTE | ~2017-03-18 | PN ---
Unit #: [id number] #: [id number] Patient: AISLINN MATTSON [id number] [facility] [address] [place] [address] [id number] I MR#: [id number] NAME: AISLINN MATTSON ROOM: [facility] Age: 26 Sex: F Admission Date: 03/18/2017 : 1990 Attending Physician: Benjy Pierre M.D. Admitting Physician: Benjy Pierre M.D. Primary Care Physician: Generic Doctor Not In System [facility] PROGRESS NOTES DATE 03/20/2017 DISCUSSION The patient is noted to be lying on her mattress which she has pulled into the floor and is crying out saying "I feel like a baby." The patient is able to stop this behavior immediately upon gentle confrontation by this physician indicating that it is purely behavior in nature. We continue current treatment. Dictated by... Benjy Pierre M.D. CB/ny TD: 03/20/2017 20:50 JOB #: [id number] [facility] PROGRESS NOTES Page 1 of 1 X Benjy Pierre MD PROGRESS NOTE
--- NOTE | ~2017-03-18 | DS ---
Unit #: [id number] #: [id number] Patient: AISLINN MATTSON [id number] [facility] [address] [place] [address] [id number] I MR#: [id number] NAME: AISLINN MATTSON ROOM: 15 Age: 26 Sex: F Admission Date: 03/18/2017 : 1990 Discharge Date: 03/27/2017 Attending Physician: Benjy Pierre M.D. Primary Care Physician: Generic Doctor Not In System DISCHARGE SUMMARY REASON FOR ADMISSION The patient is a 26-year-old white female, admitted with recurrence of suicidal ideation and auditory hallucinations. HOSPITAL COURSE The patient was admitted to the [address] [place] [address] unit and placed on suicide precautions. She initially stated that she was , but a stat beta-hCG proved otherwise. The patient was therefore restarted on previously prescribed medications. Her Seroquel was finally increased to a final dose of 100 mg b.i.d. and 600 mg at h.s. given the patient's complaints of ongoing "psychosis." The patient showed slow, but steady improvement. By 03/27/2017, the patient appeared to be at or near her psychiatric baseline. She was pleasant and cooperative and comply with medications. Discharge was ordered. FINAL DIAGNOSES Schizoaffective disorder, history of traumatic brain injury, obesity, asthma. DISPOSITION ON DISCHARGE The patient is discharged on the following medications: Seroquel 100 mg b.i.d. and 600 mg at h.s. for psychosis, Minipress 2 mg at bedtime for nightmares, Lamictal 200 mg at nighttime for mood stabilization, Vistaril 50 mg q.6 hours p.r.n. anxiety, Proventil HFA 2 puffs q.4 hours p.r.n. shortness of air, MiraLAX 17 g daily for constipation, Claritin 10 mg once daily for environmental allergies, Colace 100 mg once daily for constipation, Symbicort 2 puffs b.i.d. for shortness of air, and Zofran 4 mg q.6 hours p.r.n. nausea. DISCHARGE INSTRUCTIONS No dietary or physical restrictions were placed upon the patient at the time of discharge. FOLLOWUP Followup will take place through the auspices of [facility]. PROGNOSIS The patient's prognosis remains guarded. Dictated by... Benjy Pierre M.D. Unit #: [id number] #: [id number] Patient: AISLINN MATTSON BARTOLO/lula TD: 03/28/2017 06:31 JOB #: [id number] DISCHARGE SUMMARY Page 1 of 1 X Benjy Pierre MD X DISCHARGE SUMMARY
--- NOTE | ~2017-03-18 | PN ---
Unit #: [id number] #: [id number] Patient: AISLINN MATTSON [id number] [facility] [address] [place] [address] [id number] I MR#: [id number] NAME: AISLINN MATTSON ROOM: [facility] Age: 26 Sex: F Admission Date: 03/18/2017 : 1990 Attending Physician: Benjy Pierre M.D. Admitting Physician: Benjy Pierre M.D. Primary Care Physician: Lola Doctor Not In System [facility] PROGRESS NOTES DATE 03/19/2017 DISCUSSION The patient is not in fact and we will restart previously prescribed medications. She continues to endorse hopelessness and suicidal ideation during today's interview. Dictated by... Benjy Pierre M.D. CB/ny TD: 03/19/2017 16:11 JOB #: [id number] [facility] PROGRESS NOTES Page 1 of 1 X Benjy Pierre MD X PROGRESS NOTE
--- NOTE | ~2017-03-18 | PN ---
Unit #: [id number] #: [id number] Patient: AISLINN MATTSON [id number] [facility] [address] [place] [address] [id number] I MR#: [id number] NAME: AISLINN AMTTSON ROOM: 15 Age: 26 Sex: F Admission Date: 03/18/2017 : 1990 Attending Physician: Benjy Pierre M.D. Admitting Physician: Benjy Pierre M.D. Primary Care Physician: Generic Doctor Not In System [facility] PROGRESS NOTES DATE 03/25/2017 DISCUSSION It appears as though the patient's PPD is going to overwhelmingly positive and I will ask for a medical consult related there too. She continues to complain of "periods of psychosis" in spite of increased dose of Seroquel. Dictated by... Benjy Pierre M.D. CB/jose TD: 03/25/2017 22:10 JOB #: [id number] [facility] PROGRESS NOTES Page 1 of 1 X Benjy Pierre MD PROGRESS NOTE
--- NOTE | ~2017-03-18 | PA ---
Unit #: [id number] #: [id number] Patient: AISLINN MATTSON [id number] [facility] [address] [place] [address] [id number] I MR#: [id number] NAME: AISLINN MATTSON ROOM: 15 Age: 26 Sex: F Admission Date: 03/18/2017 : 1990 Date of Assessment: 03/18/2017 Attending Physician: Benjy Pierre M.D. Admitting Physician: Benjy Pierre M.D. Primary Care Physician: Generic Doctor Not In System PSYCHIATRIC ASSESSMENT IDENTIFYING INFORMATION The patient is a 26-year-old female, well known to this physician from multiple previous admissions to this facility. She is readmitted claiming to be and needing to "have her medications adjust." INFORMANT(S) Patient and chart, reliability poor. CHIEF COMPLAINT None given. HISTORY OF PRESENT ILLNESS The patient is a 26-year-old white female, well known to this physician, from multiple previous admissions to this facility, the last of which was done on 03/03/2017. The patient claims to have been staying at "[facility]" since her last discharge but also claims that she is stating that she knows this because "I have been throwing up in the morning." The patient is prescribed a host of psychotropic medications including, but not limited to, Seroquel, Minipress, and Lamictal. Her compliance with these medications is somewhat questionable. She is currently reporting positive suicidal ideation. She denies homicidal ideation. For more complete history of present illness please refer to previously dictated notes. PAST PSYCHIATRIC HISTORY Reviewed and no changes. PAST MEDICAL HISTORY Reviewed and no changes. MEDICATIONS 1. Minipress 2. Seroquel 3. Lamictal Vistaril 4. MiraLAX 5. Neurontin 6. Proventil HFA 7. Symbicort 8. Claritin 9. Colace ALLERGIES Unit #: [id number] #: [id number] Patient: AISLINN MATTSON Topamax, lithium. FAMILY HISTORY Reviewed and no changes. SOCIAL HISTORY Reviewed and no changes. MENTAL STATUS EXAM At this time reveals the patient to be an obese white female, appearing her stated age. She is dressed in hospital garb. She is awake, alert, and oriented in all spheres. Her mood is mildly irritable. Her affect constricted. Speech is generally relevant and coherent. There are no gross deficits to memory or cognition noted. Intelligence is judged to be in the average range based on fund of knowledge. The patient is cooperative throughout the interview. She is currently endorsing positive suicidal ideation. She denies homicidal ideation. She denies any psychotic symptoms. Her judgment and insight appear to be somewhat impaired. ASSETS To be assessed. LIABILITIES Lack of resources, homelessness. DIAGNOSTIC IMPRESSION [place] I: Schizoaffective disorder. History of traumatic brain injury. [place] II: [place] III: Obesity. Asthma. TREATMENT PLAN The patient remains hospitalized for safety and stabilization given her concerns about possible . We will check a stat Beta HCG prior to reinitiation of prescribed medications. The patient will participate in appropriate oseguera and milieu activities with suicide precautions in place. ESTIMATED LENGTH OF STAY Bjkf-ut-qikhg days. Dictated by... Benjy Pierre M.D. BARTOLO/cindy TD: 03/19/2017 08:37 JOB #: [id number] Unit #: [id number] #: [id number] Patient: MENSING,AISLINN PSYCHIATRIC ASSESSMENT Page 1 of 1 X Benjy Pierre MD X PSYCHIATRIC ASSESSMENT
--- NOTE | ~2017-03-18 | PN ---
Unit #: [id number] #: [id number] Patient: AISLINN MATTSON [id number] [facility] [address] [place] [address] [id number] MR#: [id number] NAME: AISLINN MATTSON [facility] Age: 26 Sex: F Admission Date: 03/18/2017 : 1990 Attending Physician: Benjy Pierre M.D. Admitting Physician: Benjy Pierre M.D. Primary Care Physician: Generic Doctor Not In System [facility] PROGRESS NOTES DATE 03/22/2017 DISCUSSION The patient seems brighter and less confused today. She is more appropriate in her interactions with this physician though she states that she continues to "feel psychotic". We continue current treatment. Dictated by... Benjy Pierre M.D. CB/jose TD: 03/23/2017 02:43 JOB #: [id number] [facility] PROGRESS NOTES Page 1 of 1 X Benjy Pierre MD X PROGRESS NOTE
--- NOTE | ~2017-03-18 | PN ---
Unit #: [id number] #: [id number] Patient: AISLINN MATTSON [id number] [facility] [address] [place] [address] [id number] I MR#: [id number] NAME: AISLINN MATTSON ROOM: [facility] Age: 26 Sex: F Admission Date: 03/18/2017 : 1990 Attending Physician: eBnjy Pierre M.D. Admitting Physician: Benjy Pierre M.D. Primary Care Physician: Lola Doctor Not In System [facility] PROGRESS NOTES DATE 03/26/2017 DISCUSSION Concerns regarding the patient's PPD were premature as she is now showing no induration at the site of her test. The patient does request test for hepatitis C, HIV and various sexually transmitted diseases secondary to recent unprotected sex. She continues to complain of "psychotic symptoms" but I do not look to make much in the way of further medication changes. Dictated by... Benjy Pierre M.D. CB/ny TD: 03/26/2017 15:30 JOB #: [id number] [facility] PROGRESS NOTES Page 1 of 1 X Benjy Pierre MD X PROGRESS NOTE
--- NOTE | ~2017-03-18 | HP ---
Unit #: [id number] #: [id number] Patient: HAYLIE MATTSON [id number] [facility] [place] [address] [id number] I MR#: [id number] NAME: HAYLIE MATTSON ROOM: P115 Age: 26 Sex: F Admission Date: 03/18/2017 : 1990 Attending Physician: Benjy Pierre M.D. Admitting Physician: Benjy Pierre M.D. Primary Care Physician: Lola Doctor Not In System HISTORY AND PHYSICAL HISTORY OF PRESENT ILLNESS Haylie is a 26 year old admitted to [address] [place] [address] with depression and verbalizing wanting to hurt herself. She has had numerous admissions to this facility. PAST MEDICAL HISTORY 1. Asthma. 2. GERD. 3. Morbid obesity. 4. History of self-harming. Nothing new prior to this admission. PAST SURGICAL HISTORY Nothing reported. ALLERGIES No known drug allergies. SOCIAL HISTORY Smokes 1/2 pack per day. Denies alcohol and illicit drug use. FAMILY HISTORY Medically noncontributory. REVIEW OF SYSTEMS CONSTITUTIONAL: No fever or chills. HEENT: Denies any sore throat, ear pain or runny nose. CARDIOVASCULAR: Denies chest pain, irregular heart rhythm or palpitations. CHEST: Denies shortness of breath or cough. No hemoptysis. GASTROINTESTINAL: Denies nausea, vomiting, diarrhea or chronic constipation. ENDOCRINE: Denies history of increased thirst or urination. No recent significant weight loss or gain. GENITOURINARY: Denies dysuria, frequency, or hematuria. SKIN: Denies any rashes. HEMATOLOGIC: Denies history of increased bleeding or bruising. MUSCULOSKELETAL: Denies any hot, swollen joints. No generalized muscle pain. NEUROLOGIC: Denies problems with vision or speech. No frequent, severe headaches. No numbness, tingling or weakness in any extremities. Denies loss of bladder or bowel control. CURRENT MEDICATIONS 1. Colace 100 mg daily. Unit #: [id number] #: [id number] Patient: HAYLIE MATTSON 2. Minipress 2 mg q.h.s. 3. Seroquel 400 mg q.h.s. 4. Lamictal 200 mg q.h.s. 5. Symbicort b.i.d. 6. Neurontin 800 mg q.i.d. 7. Zofran p.r.n. 8. Proventil inhaler p.r.n. 9. Vistaril p.r.n. 10. Tylenol p.r.n. 11. Milk of Magnesia p.r.n. 12. MiraLAX daily. 13. Claritin 10 mg daily. 14. Nicotine patch 14 mg daily. PHYSICAL EXAMINATION GENERAL: Alert, obese, in no apparent distress. VITAL SIGNS: Blood pressure 130/88, heart rate 80, respirations 16, temperature 98.6. WEIGHT: 209. HEIGHT: 5 feet 4 inches. SKIN: Warm and dry without rash or lesion. HEENT: Normocephalic. TMs not viewed. Oral and nasal passages clear. Conjunctivae clear. PERRLA. EOMs intact. NECK: Supple without lymphadenopathy or thyromegaly. HEART: Regular rate and rhythm without murmur. LUNGS: Clear. ABDOMEN: Soft, nontender. : Not done. EXTREMITIES: No evidence of cyanosis, clubbing or edema. Moves all without focal deficit. NEUROLOGICAL: Grossly within normal limits. Cranial Nerves: II: Visual mendoza are intact. III, IV AND : Extraocular movements are intact. Pupils are equal, round and reactive to light. V: Facial sensation is grossly normal. VII: Facial movements and expression are normal. VIII: Auditory acuity grossly intact. IX, X: Uvula is midline. Phonation is normal. XI: Patient shrugs shoulders and turns head normally. XII: Tongue protrudes in the midline. Sensory and Motor Function: Sensory and motor sensation is grossly normal. Motor: moves all extremities well. Coordination: Gait is normal. Deep Tendon Reflexes: Intact. IMPRESSION Psychiatric admission. RECOMMENDATIONS PSYCHIATRIC: Per psychiatrist. MEDICAL: See no contraindication to participate in facility's activities. MEDICAL PROGNOSIS Good. MEDICAL CONDITION Stable. Unit #: [id number] #: [id number] Patient: MENSING,HAYLIE Dictated by... Yaz Duarte P.A.-C. for Christina Mcmahan/ny TD: 03/18/2017 23:01 JOB #: [id number] HISTORY AND PHYSICAL Page 1 of 1 X Yaz Duarte HISTORY AND PHYSICAL
--- NOTE | ~2017-03-18 | PN ---
Unit #: [id number] #: [id number] Patient: AISLINN MATTSON [id number] [facility] [address] [place] [address] [id number] I MR#: [id number] NAME: AISLINN MATTSON ROOM: 15 Age: 26 Sex: F Admission Date: 03/18/2017 : 1990 Attending Physician: Benjy Pierre M.D. Admitting Physician: Benjy Pierre M.D. Primary Care Physician: Generic Doctor Not In System [facility] PROGRESS NOTES DATE 03/23/2017 DISCUSSION The patient confides to this physician today that she is a "hermaphrodite" and is thus having hormonal changes related thereto. I have explained to the patient that it is highly unlikely that she is really a hermaphrodite since she has given to a child. She does request an increase in her Seroquel, and we will go ahead and go to a 600-mg dose. Dictated by... Benjy Pierre M.D. CB/antoinette TD: 03/23/2017 14:24 JOB #: [id number] [facility] PROGRESS NOTES Page 1 of 1 X Benjy Pierre MD X PROGRESS NOTE
--- NOTE | ~2017-03-18 | PN ---
Unit #: [id number] #: [id number] Patient: AISLINN MATTSON [id number] [facility] [address] [place] [address] [id number] I MR#: [id number] NAME: AISLINN MATTSON ROOM: [facility] Age: 26 Sex: F Admission Date: 03/18/2017 : 1990 Attending Physician: Benjy Pierre M.D. Admitting Physician: Benjy Pierre M.D. Primary Care Physician: Lola Doctor Not In System [facility] PROGRESS NOTES DATE 03/21/2017 DISCUSSION The patient is abed today. She offers no new complaints and is no longer lying in the floor making "baby sounds." We continue current aggressive pharmacotherapy and expect that the patient will at some point inform us of her readiness for discharge. Dictated by... Benjy Pierre M.D. CB/ny TD: 03/21/2017 12:47 JOB #: [id number] [facility] PROGRESS NOTES Page 1 of 1 X Benjy Pierre MD PROGRESS NOTE
[2017-03-18 15:48] LABS: URINE APPEARANCE CLEAR; URINE BILIRUBIN NEG (NEG); URINE BLOOD NEG (NEG); URINE COLOR YELLOW; URINE GLUCOSE NEG (NEG); URINE KETONE NEG (NEG); URINE LEUKOCYTE ESTERASE NEG (NEG); URINE NITRATE NEG (NEG); URINE PH 5.5 (5-8); URINE PROTEIN NEG (NEG); URINE UROBILINOGEN 0.2 MG/DL (NEG)
[2017-03-18 16:02] LABS: AMPHETAMINE NEG (NEG); BARBITURATES NEG (NEG); BENZODIAZEPINES NEG (NEG); COCAINE NEG (NEG); MARIJUANA NEG (NEG); OPIATES NEG (NEG); TRICYCLIC ANTIDEPRESSANTS NEG (NEG); U METHADONE NEG (NEG)
[2017-03-29 08:58] LABS: CHLAMYDIA TRACH Not Detected (Not Detected); N GONOR Not Detected (Not Detected)
[2017-03-31 07:15] LABS: HA AB IGM (HEPPAN) Nonreactive (()); HB CORE AB IGM (HEPPAN) Nonreactive (Nonreactive); HB S AG (HEPPAN) Nonreactive (Nonreactive); HEP C AB (HEPPAN) Nonreactive (Nonreactive); HEP C AB SIGNAL TO CUTOFF 0.02 ratio (<1.00)
== END 2017-03-27 16:15 | disposition home or self-care (01) | DRG 885 ==
LOC: P1S 12:17
PROVIDERS: Specialist
DX: F25.9 Schizoaffective disorder, unspecified (principal); E66.9 Obesity, unspecified; J45.909 Unspecified asthma, uncomplicated; Z87.820 Personal history of traumatic brain injury
CPT/HCPCS: 80074; 80307; 81003; 84703; 87491; 87591; 87806

== ENCOUNTER 2017-03-29 03:00 | Inpatient (IN) | payer MEDICARE, OTHER ==
[~2017-03-29] VITALS: Ht 165.1 cm; Wt 96.6 kg
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
--- NOTE | ~2017-03-29 | CO ---
Unit #: [id number] #: [id number] Patient: HAYLIE MATTSON [id number] [facility] [address] [place] [address] [id number] I MR#: [id number] NAME: HAYLIE MATTSON ROOM: [facility] Age: 26 Sex: F Admission Date: 03/29/2017 : 1990 Attending Physician: Benjy Pierre M.D. Primary Care Physician: Generic Doctor Not In System Consultation Date: 03/25/2017 CONSULTATION REPORT JOB NOTE: DICTATED FOR NOT DICTATED Haylie had a PPD placed on 03/25/2017. This was read as negative on 03/27/2017. Dictated by... Yaz Duarte P.A.-C. for Christina Mcmahan/ulla TD: 03/30/2017 22:56 JOB #: [id number] CONSULTATION REPORT Page 1 of 1 X Yaz Duarte CONSULTATION REPORT
--- NOTE | ~2017-03-29 | HP ---
Unit #: [id number] #: [id number] Patient: AISLINN MATTSON [id number] [facility] [address] [place] [address] [id number] I MR#: [id number] NAME: AISLINN MATTSON ROOM: [facility] Age: 26 Sex: F Admission Date: 03/29/2017 : 1990 Attending Physician: Benjy Pierre M.D. Admitting Physician: Benjy Pierre M.D. Primary Care Physician: Generic Doctor Not In System HISTORY AND PHYSICAL The patient is a 26-year-old female admitted to [address] [place] [address] on 03/29/2017 for suicidal ideation. The patient had a recent admission on 03/28/2017 where a full history and physical was completed. That history and physical has been reviewed. No changes need to be made. Dictated by... Jessica Gallo/jose TD: 03/30/2017 02:24 JOB #: [id number] HISTORY AND PHYSICAL Page 1 of 1 X DAVID [place] APRN X HISTORY AND PHYSICAL
--- NOTE | ~2017-03-29 | PN ---
Unit #: [id number] #: [id number] Patient: AISLINN MATTSON [id number] [facility] [address] [place] [address] [id number] I MR#: [id number] NAME: AISLINN MATTSON ROOM: [facility] Age: 26 Sex: F Admission Date: 03/29/2017 : 1990 Attending Physician: Benjy Pierre M.D. Admitting Physician: Benjy Pierre M.D. Primary Care Physician: Lola Doctor Not In System [facility] PROGRESS NOTES DATE 04/02/2017 DISCUSSION The patient is in somewhat brighter spirits today and has not exhibited any psychotic or otherwise inappropriate behavior leading this physician to wonder whether there was a state of intoxication which occurred during her time outside the hospital which had lingered until just a last couple of days. I will discontinue room lockout in anticipation of possible a.m. discharge. I will increase the Thorazine dose to 150 mg at bedtime as per the patient's request, but I have had discuss with her today regarding the risk of tardive dyskinesia particularly in female patients with prominent mood symptoms. Dictated by... Benjy Pierre M.D. CB/antoinette TD: 04/02/2017 15:08 JOB #: [id number] [facility] PROGRESS NOTES Page 1 of 1 X Benjy Pierre MD X PROGRESS NOTE
--- NOTE | ~2017-03-29 | PN ---
Unit #: [id number] #: [id number] Patient: AISLINN MATTSON [id number] [facility] [address] [place] [address] [id number] I MR#: [id number] NAME: AISLINN MATTSON ROOM: [facility]5 Age: 26 Sex: F Admission Date: 03/29/2017 : 1990 Attending Physician: Benjy Pierre M.D. Admitting Physician: Benjy Pierre M.D. Primary Care Physician: Generic Doctor Not In System [facility] PROGRESS NOTES DATE 04/01/2017 DISCUSSION The patient remains on eye-view precautions. She is calmer today and has been less problematic in her behavior. She requests "Thorazine for sleep." I will discontinue her room lockout and begin Thorazine at bedtime given the patient's complaints of chronically poor sleep. Dictated by... Benjy Pierre M.D. CB/antoinette TD: 04/01/2017 14:39 JOB #: [id number] [facility] PROGRESS NOTES Page 1 of 1 X Benjy Pierre MD X PROGRESS NOTE
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
--- NOTE | ~2017-03-29 | DS ---
Unit #: [id number] #: [id number] Patient: AISLINN MATTSON [id number] [facility] [address] [place] [address] [id number] I MR#: [id number] NAME: AISLINN MATTSON ROOM: P125 Age: 26 Sex: F Admission Date: 03/29/2017 : 1990 Discharge Date: 04/03/2017 Attending Physician: Benjy Pierre M.D. Primary Care Physician: Generic Doctor Not In System DISCHARGE SUMMARY REASON FOR ADMISSION The patient is a 26-year-old white female, readmitted to the [address] [place] [address] unit after she had exhibited bizarre behavior. HOSPITAL COURSE The patient was admitted to the [address] [place] [address] unit and restarted on previously prescribed medications. She was placed on room lockout precautions to assure her safety. She did complain of poor sleep and was begun on Thorazine 150 mg at bedtime. She did show significant improvement and requested discharge on 04/03/2017. She was on that date, warned of the health hazard created by the extremely hot temperatures, but refused to remain in the hospital was offered. Discharge was ordered. FINAL DIAGNOSES Bipolar disorder, mixed phase; history of traumatic brain injury; asthma; and morbid obesity. DISPOSITION ON DISCHARGE The patient is discharged on the following medications: Vistaril 50 mg q.6 hours p.r.n. anxiety, Lamictal 200 mg at bedtime for mood stabilization, Seroquel 100 mg b.i.d. and 600 mg at bedtime for mood stabilization, Minipress 2 mg at bedtime for her nightmares, Colace 100 mg once daily for constipation, Claritin 10 mg once daily for environmental allergies, MiraLAX 17 g once daily for constipation, Proventil HFA 2 puffs q.4 hours p.r.n. shortness of air, Symbicort 2 puffs b.i.d. for shortness of air, and Thorazine 150 mg at bedtime p.r.n. insomnia. DISCHARGE INSTRUCTIONS No dietary or physical restrictions were placed upon the patient at the time of discharge. FOLLOWUP Followup will take place through the auspices of [facility] mental health resources. PROGNOSIS The patient's prognosis remains guarded. Dictated by... Benjy Pierre M.D. CB/modl Unit #: [id number] #: [id number] Patient: AISLINN MATTSON TD: 04/03/2017 16:47 JOB #: [id number] DISCHARGE SUMMARY Page 1 of 1 X Benjy Pierre MD X DISCHARGE SUMMARY
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
== END 2017-04-03 17:27 | disposition home or self-care (01) | DRG 885 ==
LOC: P1S 04:29
DX: F31.60 Bipolar disorder, current episode mixed, unspecified (principal); E66.01 Morbid (severe) obesity due to excess calories; R45.851 Suicidal ideations; Z87.820 Personal history of traumatic brain injury; J45.909 Unspecified asthma, uncomplicated
CPT/HCPCS: J3230

== ENCOUNTER 2017-04-05 17:00 | Inpatient (IN) | payer MEDICARE, OTHER ==
[~2017-04-05] VITALS: Ht 142.2 cm; Wt 95.3 kg
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
--- NOTE | ~2017-04-05 | PN ---
Unit #: [id number] #: [id number] Patient: AISLINN MATTSON [id number] [facility] [address] [place] [address] [id number] MR#: [id number] NAME: AISLINN MATTSON ROOM: 12 Age: 26 Sex: F Admission Date: 04/05/2017 : 1990 Attending Physician: Benjy Pierre M.D. Admitting Physician: Benjy Pierre M.D. Primary Care Physician: Generic Doctor Not In System [facility] PROGRESS NOTES DATE 04/11/2017 DISCUSSION The patient is a bit less dysphoric today. She does report that she has "1200 dollars" and queries this physician what she should do with the money. I have suggested that she looked to obtain stable housing but have further recommended that she hold on any decisions prior to her decision at [facility] on 04/14/2017. We plan to discharge the patient directly to that appointment. Dictated by... Benjy Pierre M.D. CB/antoinette TD: 04/11/2017 12:59 JOB #: [id number] [facility] PROGRESS NOTES Page 1 of 1 X Benjy Pierre MD X PROGRESS NOTE
--- NOTE | ~2017-04-05 | PA ---
Unit #: [id number] #: [id number] Patient: AISLINN MATTSON [id number] [facility] [address] [place] [address] [id number] MR#: [id number] NAME: AISLINN MATTSON ROOM: [facility] Age: 26 Sex: F Admission Date: 04/05/2017 : 1990 Date of Assessment: 04/06/2017 Attending Physician: Benjy Pierre M.D. Admitting Physician: Benjy Pierre M.D. Primary Care Physician: Generic Doctor Not In System PSYCHIATRIC ASSESSMENT IDENTIFYING INFORMATION The patient is 26-year-old white female just discharged from this facility on 04/05. She returned to this facility "acting psychotic." CHIEF COMPLAINT I smoked some spice. INFORMANT Patient and chart. RELIABILITY Fair. HISTORY OF PRESENT ILLNESS The patient is a 26-year-old white female just discharged from this facility on 04/03. The patient reports that upon leaving the hospital she had used spice and upon returning to this facility presented in a bizarre fashion. When seen today the patient appears to be at her psychiatric baseline and is denying suicidal or homicidal ideation. On admission the patient's pulse was elevated at 125. For more complete history of present illness please refer to previous dictated notes. PAST PSYCHIATRIC HISTORY Reviewed no changes. PAST MEDICAL HISTORY Reviewed no changes. MEDICATIONS Symbicort, Lamictal, vistaril, Seroquel, Minipress, MiraLAX, Proventil, Seroquel, Claritin, Thorazine, Colace. ALLERGIES Topamax, lithium. FAMILY HISTORY Reviewed no changes. SOCIAL HISTORY Reviewed no changes. MENTAL STATUS EXAMINATION At this time reveals the patient to be an obese white female appearing her stated age. She is in no apparent physical distress at the time of Unit #: [id number] #: [id number] Patient: AISLINN MATTSON examination. She is awake, alert and oriented in all spheres. Her mood is dysphoric. Her affect blunted. Speech is generally relevant and coherent. There are no gross deficits in memory or cognition noted. Intelligence is judged to be in the below average range based on fund of knowledge. The patient is cooperative throughout the interview. She denies current suicidal or homicidal ideation or psychotic features. Judgment and insight appear to be at baseline. ASSETS AND LIABILITIES ASSETS: To be assessed. LIABILITIES: Ongoing substance use, lack of resources, homelessness. DIAGNOSTIC IMPRESSION 1. Bipolar disorder, most recent episode, depressed. 2. Personality disorder unspecified. 3. History of traumatic brain injury. 4. Asthma. 5. Environmental allergies. TREATMENT PLAN The patient remains hospitalized for safety and stabilization. We will restart previously prescribed medications and the patient is sternly warned regarding the potential interaction for medications with hallucinogenic agents. To ensure the patient's safety she will be on room lockout from 6 a.m. to 10 p.m. ESTIMATED LENGTH OF STAY Three to four days. Dictated by... Benjy Pierre M.D. BARTOLO/jose TD: 04/06/2017 23:31 JOB #: [id number] PSYCHIATRIC ASSESSMENT Page 1 of 1 X Benjy Pierre MD X PSYCHIATRIC ASSESSMENT
--- NOTE | ~2017-04-05 | PN ---
Unit #: [id number] #: [id number] Patient: AISLINN MATTSON [id number] [facility] [place] [address] [id number] MR#: [id number] NAME: AISLINN MATTSON ROOM: [facility] Age: 26 Sex: F Admission Date: 04/05/2017 : 1990 Attending Physician: Benjy Pierre M.D. Admitting Physician: Benjy Pierre M.D. Primary Care Physician: Lola Doctor Not In System [facility] PROGRESS NOTES DATE 04/07/2017 DISCUSSION The patient angrily demands to this physician "treat my bipolar." I have instructed the patient that she is on an aggressive pharmacotherapeutic regimen, but we will increase her Thorazine as per her request to 200 mg at bedtime as she continues to complain of poor sleep. The patient continues to complain of room lockout status. I have explained to her that this is not only to aid her safety but also to prevent her from napping all day long which clearly interferes with the nighttime sleep. Dictated by... Benjy Pierre M.D. CB/antoinette TD: 04/07/2017 14:12 JOB #: [id number] [facility] PROGRESS NOTES Page 1 of 1 X Benjy Pierre MD X PROGRESS NOTE
--- NOTE | ~2017-04-05 | PN ---
Unit #: [id number] #: [id number] Patient: AISLINN MATTSON [id number] [facility] [address] [place] [address] [id number] I MR#: [id number] NAME: AISLINN MATTSON ROOM: [facility] Age: 26 Sex: F Admission Date: 04/05/2017 : 1990 Attending Physician: Benjy Pierre M.D. Admitting Physician: Benjy Pierre M.D. Primary Care Physician: Generic Doctor Not In System [facility] PROGRESS NOTES DATE 04/12/2017 DISCUSSION The patient appears to be approaching her psychiatric baseline. Our plan is to discharge the patient on 04/14/2017 transporting her immediately to her scheduled [place] appointment. Dictated by... Benjy Pierre M.D. CB/jose TD: 04/12/2017 22:24 JOB #: [id number] [facility] PROGRESS NOTES Page 1 of 1 X Benjy Pierre MD X PROGRESS NOTE
--- NOTE | ~2017-04-05 | PN ---
Unit #: [id number] #: [id number] Patient: AISLINN MATTSON [id number] [facility] [address] [place] [address] [id number] I MR#: [id number] NAME: AISLINN MATTSON ROOM: 12 Age: 26 Sex: F Admission Date: 04/05/2017 : 1990 Attending Physician: Benjy Pierre M.D. Admitting Physician: Benjy Pierre M.D. Primary Care Physician: Generic Doctor Not In System [facility] PROGRESS NOTES DATE 04/10/2017 DISCUSSION The patient remains pleasant and cooperative but remains rightfully concerned regarding her situation once outside the hospital stating that "all my stuff has been stolen." She does report that she has an appointment at [facility] on April 14 and we will endeavor to have her at that appointment. We continue with our [facility] referral. Dictated by... Benjy Pierre M.D. CB/ny TD: 04/10/2017 15:42 JOB #: [id number] [facility] PROGRESS NOTES Page 1 of 1 X Benjy Pierre MD X PROGRESS NOTE
--- NOTE | ~2017-04-05 | DS ---
Unit #: [id number] #: [id number] Patient: AISLINN MATTSON [id number] [facility] [address] [place] [address] [id number] I MR#: [id number] NAME: AISLINN MATTSON ROOM: [facility] Age: 26 Sex: F Admission Date: 04/05/2017 : 1990 Discharge Date: 04/14/2017 Attending Physician: Benjy Pierre M.D. Primary Care Physician: Generic Doctor Not In System DISCHARGE SUMMARY REASON FOR ADMISSION The patient is a 26-year-old white female admitted with recurrence of suicidal ideation and psychotic thinking. HOSPITAL COURSE The patient was admitted to the [address] [place] [address] unit and placed initially on room lockout precautions. She was restarted on previously prescribed medications and Thorazine was initiated, given the patient's complaints of poor sleep. The patient's stay in the hospital was an otherwise typical one for her. She was generally seclusive from participation in the therapeutic milieu and remained med seeking throughout her stay in the hospital. On 04/14/2017 arrangements have been made for the patient to go to an appointment at [facility] and discharge was ordered for the patient to go directly to that appointment. FINAL DIAGNOSES 1. Bipolar disorder NOS. 2. History of traumatic brain injury. 3. Borderline personality disorder. 4. Borderline intellectual functioning. DISPOSITION The patient is discharged. FOLLOWUP CARE Followup will take place through the offices of [facility]. DISCHARGE MEDICATIONS 1. Celexa 10 mg daily for depression. 2. Symbicort 2 puffs b.i.d. for shortness of breath. 3. Thorazine 200 mg at bedtime for mood stabilization. 4. MiraLAX 17 g daily for constipation. 5. Lamictal 300 mg at bedtime for mood stabilization. 6. Colace 100 mg daily for constipation. 7. Claritin 10 mg daily for environmental allergies. 8. Seroquel 600 mg at bedtime for mood stabilization. 9. Proventil HFA 2 puffs q.4 h. p.r.n. shortness of air. 10. Seroquel 200 mg q.a.m. for mood stabilization. 11. Vistaril 50 mg q.6 h. p.r.n. anxiety. PROGNOSIS Guarded. Unit #: [id number] #: [id number] Patient: MENSING,AISLINN DIET AND ACTIVITY No dietary or physical restrictions placed on the patient at the time of discharge. Dictated by... Benjy Pierre M.D. CB/john TD: 04/15/2017 13:05 JOB #: [id number] DISCHARGE SUMMARY Page 1 of 1 X Benjy Pierre MD X DISCHARGE SUMMARY
--- NOTE | ~2017-04-05 | PN ---
Unit #: [id number] #: [id number] Patient: AISLINN MATTSON [id number] [facility] [address] [place] [address] [id number] MR#: [id number] NAME: AISLINN MATTSON ROOM: [facility] Age: 26 Sex: F Admission Date: 04/05/2017 : 1990 Attending Physician: Benjy Pierre M.D. Admitting Physician: Benjy Pierre M.D. Primary Care Physician: Generic Doctor Not In System [facility] PROGRESS NOTES DATE 04/08/2017 DISCUSSION The patient is calm today and states that she slept well with Thorazine though she did feel some hangover effect early this morning. She is contrite over yesterday's behaviors, and I will discontinue eye-view precautions with the understanding that the patient will participate within the therapeutic milieu. The patient continues to complain of periods of "psychosis." I have spoken with the patient regarding the role that her substance abuse has on these symptoms. Dictated by... Benjy Pierre M.D. CB/antoinette TD: 04/08/2017 14:33 JOB #: [id number] [facility] PROGRESS NOTES Page 1 of 1 X Benjy Pierre MD X PROGRESS NOTE
--- NOTE | ~2017-04-05 | HP ---
Unit #: [id number] #: [id number] Patient: HAYLIE MATTSON [id number] [facility] [address] [place] [address] [id number] I MR#: [id number] NAME: HAYLIE MATTSON ROOM: 15 Age: 26 Sex: F Admission Date: 04/05/2017 : 1990 Attending Physician: Benjy Pierre M.D. Admitting Physician: Benjy Pierre M.D. Primary Care Physician: Generic Doctor Not In System HISTORY AND PHYSICAL HISTORY AND PHYSICAL COMPLETED 04/06/2017 Haylie is a 26-year-old female, admitted to [facility] on 04/05/2017 for psychosis. She had a recent admission for the same on 03/18/2017; I have reviewed the history and physical for another admission, and there are no changes. Dictated by... Jessica Perkins/cindy TD: 04/06/2017 12:35 JOB #: [id number] HISTORY AND PHYSICAL Page 1 of 1 X GABE RAMIRES APRN HISTORY AND PHYSICAL
== END 2017-04-14 09:10 | disposition home or self-care (01) | DRG 885 ==
LOC: P1E 19:33 → P1S 19:33 → P1E 04-06 02:45 → P1S 04-06 11:27
DX: F31.9 Bipolar disorder, unspecified (principal); F29 Unspecified psychosis not due to a substance or known physiological condition; F60.9 Personality disorder, unspecified; J45.909 Unspecified asthma, uncomplicated; Z87.820 Personal history of traumatic brain injury; Z88.8 Allergy status to other drugs, medicaments and biological substances
CPT/HCPCS: 84703

== ENCOUNTER 2017-04-24 23:00 | Inpatient (IN) | payer MEDICARE, OTHER ==
[~2017-04-24] VITALS: Ht 162.6 cm; Wt 46.7 kg
--- NOTE | ~2017-04-24 | HP ---
Unit #: [id number] #: [id number] Patient: HAYLIE MATTSON [id number] [place] [address] [id number] MR#: [id number] NAME: HAYLIE MATTSON ROOM: [facility] Age: 26 Sex: F Admission Date: 04/25/2017 : 1990 Attending Physician: Benjy Pierre M.D. Admitting Physician: Benjy Pierre M.D. Primary Care Physician: Generic Doctor Not In System HISTORY AND PHYSICAL HISTORY OF PRESENT ILLNESS Haylie is a 26-year-old female admitted on 04/24/[address] [place] [address] for psychosis. PAST MEDICAL HISTORY History of GERD, asthma, and morbid obesity. PAST SURGICAL HISTORY None. SOCIAL HISTORY Smokes 2 packs of cigarettes daily. Denies alcohol or illegal drug use. She is currently single and homeless. FAMILY HISTORY Noncontributory. REVIEW OF SYSTEMS CONSTITUTIONAL: No fever or chills. HEENT: Denies any sore throat, ear pain or runny nose. CARDIOVASCULAR: Denies chest pain, irregular heart rhythm or palpitations. CHEST: Denies shortness of breath or cough. No hemoptysis. GASTROINTESTINAL: Denies nausea, vomiting, diarrhea or chronic constipation. ENDOCRINE: Denies history of increased thirst or urination. No recent significant weight loss or gain. GENITOURINARY: Denies dysuria, frequency, or hematuria. SKIN: Denies any rashes. HEMATOLOGIC: Denies history of increased bleeding or bruising. MUSCULOSKELETAL: Denies any hot, swollen joints. No generalized muscle pain. NEUROLOGIC: Denies problems with vision or speech. No frequent, severe headaches. No numbness, tingling or weakness in any extremities. Denies loss of bladder or bowel control. CURRENT MEDICATIONS Celexa, Symbicort, Thorazine, MiraLAX, Lamictal, Colace, Claritin, Seroquel, Proventil, and Vistaril. ALLERGIES To lithium, Topamax, and Neoprene. PHYSICAL EXAMINATION Unit #: [id number] #: [id number] Patient: HAYLIE MATTSON GENERAL: Alert, oriented, no acute distress. VITAL SIGNS: Blood pressure 122/80, heart rate 100, respirations 18, and temperature 98.0. SKIN: Warm, dry. No rashes or lesions, track mullen, cuts, etc. HEENT: Normocephalic. TMs not viewed. Oronasal passages clear. Conjunctivae clear. PERRLA. EOM is intact. NECK: No lymphadenopathy or thyromegaly. HEART: Regular rate and rhythm. No murmur, gallop, or rub. LUNGS: Clear to auscultation bilaterally. ABDOMEN: Soft, nontender without palpable masses or hepatosplenomegaly. : Not assessed. EXTREMITIES: No evidence of cyanosis, clubbing, or edema. Moves all extremities independently without obvious deficit. NEUROLOGICAL: Grossly within normal limits. Cranial Nerves: II: Visual mendoza are intact. III, IV AND : Extraocular movements are intact. Pupils are equal, round and reactive to light. V: Facial sensation is grossly normal. VII: Facial movements and expression are normal. VIII: Auditory acuity grossly intact. IX, X: Uvula is midline. Phonation is normal. XI: Patient shrugs shoulders and turns head normally. XII: Tongue protrudes in the midline. Sensory and Motor Function: Sensory and motor sensation is grossly normal. Motor: moves all extremities well. Coordination: Gait is normal. Deep Tendon Reflexes: Intact. IMPRESSION 1. Psychiatric admission. 2. Gastroesophageal reflux disease. 3. Asthma. 4. Obesity. RECOMMENDATIONS PSYCHIATRIC: Per psychiatrist. MEDICAL: No contraindication to participating in this facility's activities. MEDICAL PROGNOSIS Good. MEDICAL CONDITION Stable. Dictated by... Jessica Perkins TD: 04/25/2017 14:33 JOB #: [id number] Unit #: [id number] #: [id number] Patient: MENSING,HAYLIE HISTORY AND PHYSICAL Page 1 of 1 X GABE RAMIRES APRN HISTORY AND PHYSICAL
--- NOTE | ~2017-04-24 | DS ---
Unit #: [id number] #: [id number] Patient: AISLINN MATTSON [id number] [place] [address] [id number] I MR#: [id number] NAME: AISLINN MATTSON ROOM: [facility] Age: 26 Sex: F Admission Date: 04/25/2017 : 1990 Discharge Date: 04/28/2017 Attending Physician: Benjy Pierre M.D. Primary Care Physician: Generic Doctor Not In System DISCHARGE SUMMARY REASON FOR ADMISSION The patient is a 26-year-old, white female admitted after having been left at this facility by [facility] after she had been exhibiting bizarre behavior in public. HOSPITAL COURSE The patient was admitted to the [address] [place] [address] unit and placed on suicide precautions. Because of inappropriate behavior, she was briefly put on 1:1 precautions. The patient's psychotropic medications were discontinued at the time of admission given her complete lack of compliance with them outside the hospital as well as her ongoing abuse of psychoactive substances. By 04/28, the patient requested discharge from the hospital and it was so ordered. FINAL DIAGNOSES 1. Hallucinogen use disorder. 2. Borderline personality disorder. 3. Malingering. 4. Bipolar disorder, unspecified, by history. 5. Asthma. DISPOSITION On discharge, the patient is discharged on the following medications: 1. Symbicort 2 puffs b.i.d. for shortness of air. 2. MiraLAX 17 g daily for constipation. 3. Colace 100 mg daily for constipation. 4. Claritin 10 mg daily for environmental allergies. 5. Proventil HFA 2 puffs q.4 hours p.r.n. shortness of air. DIET AND ACTIVITY No dietary or physical restrictions placed on the patient at the time of discharge. PROGNOSIS Her prognosis remains guarded given (1) and lack of support in the area and poor decision making. Dictated by... Benjy Pierre M.D. Unit #: [id number] #: [id number] Patient: AISLINN MATTSON BARTOLO/kel TD: 04/29/2017 11:03 JOB #: [id number] DISCHARGE SUMMARY Page 1 of 1 X Benjy Pierre MD DISCHARGE SUMMARY
--- NOTE | ~2017-04-24 | PA ---
Unit #: [id number] #: [id number] Patient: AISLINN MATTSON [id number] [place] [address] [id number] I MR#: [id number] NAME: AISLINN MATTSON ROOM: 32 Age: 26 Sex: F Admission Date: 04/25/2017 : 1990 Date of Assessment: 04/25/2017 Attending Physician: Benjy Pierre M.D. Admitting Physician: Benjy Pierre M.D. Primary Care Physician: Generic Doctor Not In System PSYCHIATRIC ASSESSMENT IDENTIFYING INFORMATION The patient is a 26-year-old white female admitted after having brought to this facility by [facility] after exhibiting bizarre behavior. CHIEF COMPLAINT None given. INFORMANT Patient and chart, reliability poor. HISTORY OF PRESENT ILLNESS The patient is a 26-year-old white female well known to this physician from multiple previous admissions the last of which ended on 04/14/2017. She was readmitted after [facility] had brought her here after she had exhibited bizarre behavior. The patient admits that she has been smoking twice. She also is expressing concerns that she might be as she has been having unprotected sex with multiple partners. The patient reports that she has not been compliant with prescribed psychotropic medications while hospitalized and remains homeless. For more complete history of present illness, please refer to previously dictated notes. PAST PSYCHIATRIC HISTORY Reviewed, no changes. PAST MEDICAL HISTORY Reviewed, no changes. MEDICATIONS At the time of admission, the patient's medications include Celexa, Symbicort, Thorazine, MiraLAX, Lamictal, Colace, Claritin, Seroquel, Proventil HFA, and Vistaril. ALLERGIES [place], Topamax, (1) ___. FAMILY HISTORY Noncontributory. SOCIAL HISTORY Reviewed, no changes. MENTAL STATUS EXAMINATION Examination at this time reveals the patient to be a morbidly obese white Unit #: [id number] #: [id number] Patient: AISLINN MATTSON female who was dressed in the hospital garb. She is in a state of some dishevelment. She is awake, alert, and oriented in all spheres. Her mood is unusually silly. Her affect blunted. Speech is impoverished. There are no gross deficits in memory or cognition noted. Intelligence is judged to be in the low-average range based on fund of knowledge. The patient is less than optimally cooperative during interview. Her judgment and insight appear to be fairly impaired. ASSETS AND LIABILITIES The patient's assets are to be assessed. Liabilities: Lack of resources. DIAGNOSTIC IMPRESSION 1. 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 2. Bipolar disorder by history. 3. History of traumatic brain injury and morbid obesity. 4. Asthma. 5. Environmental allergies. TREATMENT PLAN The patient remains hospitalized for safety and stabilization. At this point, the patient's "psychiatric symptoms" seem mainly related to her ongoing abuse of hallucinogens outside the hospital, and her "psychotic" behaviors in the hospital (2) __ to be completely under her control. It is very doubtful that the patient is complying with prescribed psychotropic medications outside the hospital, and more to the point she is continuing to endanger herself by abusing psychoactive substances along with these agents. To this end, I have plan today to discontinue Celexa, Thorazine, Lamictal, and Seroquel, and will order only p.r.n. Haldol for periods of agitation. The patient's expectations of inpatient care are firmly redirected today. Dictated by... Benjy Pierre M.D. BARTOLO/antoinette TD: 04/25/2017 13:12 JOB #: [id number] PSYCHIATRIC ASSESSMENT Page 1 of 1 X Benjy Pierre MD X PSYCHIATRIC ASSESSMENT
--- NOTE | ~2017-04-24 | PN ---
Unit #: [id number] #: [id number] Patient: AISLINN MATTSON [id number] [facility] [address] [place] [address] [id number] MR#: [id number] NAME: AISLINN MATTSON ROOM: [facility] Age: 26 Sex: F Admission Date: 04/25/2017 : 1990 Attending Physician: Benjy Pierre M.D. Admitting Physician: Benjy Pierre M.D. Primary Care Physician: Lola Doctor Not In System [facility] PROGRESS NOTES DATE 04/26/2017 DISCUSSION The patient is now on one to one precautions after her inappropriate sexual behavior, i.e. undressing in the hallway had led to a need for this again. Again, all of her previously prescribed psychotropic medications have been discontinued given the strong behavioral and substance induced aspect to the patient's symptoms and p.r.n. Haldol and Cogentin are the only medications currently in place for the patient from a psychiatric stand point. Dictated by... Benjy Pierre M.D. CB/jose TD: 04/26/2017 22:54 JOB #: [id number] [facility] PROGRESS NOTES Page 1 of 1 X Benjy Pierre MD X PROGRESS NOTE
--- NOTE | ~2017-04-24 | PN ---
Unit #: [id number] #: [id number] Patient: AISLINN MATTSON [id number] [facility] [address] [place] [address] [id number] I MR#: [id number] NAME: AISLINN MATTSON ROOM: 16 Age: 26 Sex: F Admission Date: 04/25/2017 : 1990 Attending Physician: Benjy Pierre M.D. Admitting Physician: Benjy Pierre M.D. Primary Care Physician: Generic Doctor Not In System [facility] PROGRESS NOTES DATE 04/27/2017 DISCUSSION The patient remains abed and is acting purposefully "silly" during today's interview. She has not had any further episodes of inappropriate behavior however, and I will discontinue her one to one in anticipation of discharge in the next couple of days. Dictated by... Benjy Pierre M.D. CB/jose TD: 04/27/2017 21:45 JOB #: [id number] [facility] PROGRESS NOTES Page 1 of 1 X Benjy Pierre MD X PROGRESS NOTE
== END 2017-04-28 16:10 | disposition home or self-care (01) | DRG 897 ==
LOC: P1S 04-25 01:14
DX: F16.229 Hallucinogen dependence with intoxication, unspecified (principal); E66.01 Morbid (severe) obesity due to excess calories; F16.283 Hallucinogen dependence with hallucinogen persisting perception disorder (flashbacks); F31.9 Bipolar disorder, unspecified; J45.909 Unspecified asthma, uncomplicated; Z87.820 Personal history of traumatic brain injury; K21.9 Gastro-esophageal reflux disease without esophagitis
CPT/HCPCS: 84703; 86592

== ENCOUNTER 2017-05-25 02:00 | Inpatient (IN) | payer MEDICARE, OTHER ==
[~2017-05-25] VITALS: Ht 162.6 cm; Wt 90.7 kg
--- NOTE | ~2017-05-25 | PN ---
Unit #: [id number] #: [id number] Patient: AISLINN MATTSON [id number] [facility] [address] [place] [address] [id number] MR#: [id number] NAME: AISLINN MATTSON ROOM: 16 Age: 26 Sex: F Admission Date: 05/25/2017 : 1990 Attending Physician: Benjy Pierre M.D. Admitting Physician: Benjy Pierre M.D. Primary Care Physician: Generic Doctor Not In System [facility] PROGRESS NOTES DATE 05/30/2017 DISCUSSION The patient complains of feeling "anxious today" but appears quite calm during interview. She is for discharge and appears to be nearing her psychiatric baseline. Dictated by... Benjy Pierre M.D. CB/ny TD: 05/30/2017 12:30 JOB #: [id number] [facility] PROGRESS NOTES Page 1 of 1 X Benjy Pierre MD X PROGRESS NOTE
--- NOTE | ~2017-05-25 | HP ---
Unit #: [id number] #: [id number] Patient: HAYLIE MATTSON [id number] [facility] [address] [place] [address] [id number] MR#: [id number] NAME: HAYLIE MATTSON ROOM: P116 Age: 26 Sex: F Admission Date: 05/25/2017 : 1990 Attending Physician: Benjy Pierre M.D. Admitting Physician: Benjy Pierre M.D. Primary Care Physician: Generic Doctor Not In System HISTORY AND PHYSICAL HISTORY OF PRESENT ILLNESS Haylie is a 26 year old admitted to [address] [place] [address] because of her belligerent behavior. She reports that she wants to hurt herself. She has had numerous admissions to this facility for the same. Patient was seen and H & P dated 04/25/2017 was reviewed. This is current. No changes. Please see H and P dated 04/25/2017. Dictated by... Yaz Duarte P.A.-C. for Christina Mcmahan/jose TD: 05/26/2017 00:50 JOB #: [id number] HISTORY AND PHYSICAL Page 1 of X Yaz Duarte HISTORY AND PHYSICAL
--- NOTE | ~2017-05-25 | DS ---
Unit #: [id number] #: [id number] Patient: AISLINN MATTSON [id number] [facility] [address] [place] [address] [id number] MR#: [id number] NAME: AISLINN MATTSON ROOM: P116 Age: 26 Sex: F Admission Date: 05/25/2017 : 1990 Discharge Date: 06/03/2017 Attending Physician: Benjy Pierre M.D. Primary Care Physician: Generic Doctor Not In System DISCHARGE SUMMARY REASON FOR ADMISSION The patient is a 26-year-old homeless, white female, admitted after she had presented at this facility acting in a bizarre fashion under the influence of "spice," and other psychoactive substances. HOSPITAL COURSE The patient was admitted to the [address] [place] [address] unit and placed on suicide precautions. She was continued on home medications, but no home psychotropic medications were restarted given the patient's admitted ongoing abuse of hallucinogens and other psychoactive substances including methamphetamine. The patient's stay in the hospital was characterized by behavioral outbursts often requiring p.r.n.'s of Thorazine, but it was the feeling of this physician and staff that these behaviors were manipulative and aim to extending the patient's hospital stay. By 06/03/2017, the patient was thought to be at or near her psychiatric baseline. She requested discharge and it was so ordered. FINAL DIAGNOSES Methamphetamine use disorder; hallucinogen use disorder; mood disorder, unspecified; borderline personality disorder; history of traumatic brain injury; malingering; morbid obesity; asthma. DISPOSITION ON DISCHARGE No psychotropic medications ordered at the time of time of discharge. The patient will continue previously prescribed Proventil HFA 2 puffs q.4 hours shortness of air, Symbicort 2 puffs b.i.d. for shortness of air, MiraLAX 17 g once daily for constipation, Colace 100 mg once daily for constipation, Claritin 10 mg once daily for environmental allergies. DISCHARGE INSTRUCTIONS No dietary or physical restrictions were placed on the patient at the time of discharge. FOLLOWUP Followup will take place through the auspices of critical [facility] hospital mental health resources. PROGNOSIS Her prognosis is considered guarded. Dictated by... Benjy Pierre M.D. Unit #: [id number] #: [id number] Patient: AISLINN MATTSON BARTOLO/lula TD: 06/03/2017 19:31 JOB #: [id number] DISCHARGE SUMMARY Page 1 of 1 X Benjy Pierre MD DISCHARGE SUMMARY
--- NOTE | ~2017-05-25 | PN ---
Unit #: [id number] #: [id number] Patient: AISLINN MATTSON [id number] [facility] [address] [place] [address] [id number] MR#: [id number] NAME: AISLINN MATTSON ROOM: 16 Age: 26 Sex: F Admission Date: 05/25/2017 : 1990 Attending Physician: Benjy Pierre M.D. Admitting Physician: Benjy Pierre M.D. Primary Care Physician: Generic Doctor Not In System [facility] PROGRESS NOTES DATE 05/28/2017 DISCUSSION The patient is abed today. He is demanding "something for my anxiety." Upon having been denied this secondary to ongoing substance use outside the hospital, the patient has walked into the ortega in a state of (1) __ p.r.n. Thorazine will be necessary. It remains the feeling of this physician that these behaviors are entirely behavioral and not necessarily related to a treatable psychiatric illness. Dictated by... Benjy Pierre M.D. CB/antoinette TD: 05/28/2017 15:03 JOB #: [id number] [facility] PROGRESS NOTES Page 1 of 1 X Benjy Pierre MD X PROGRESS NOTE
--- NOTE | ~2017-05-25 | PN ---
Unit #: [id number] #: [id number] Patient: AISLINN MATTSON [id number] [facility] [address] [place] [address] [id number] MR#: [id number] NAME: AISLINN MATTSON ROOM: 16 Age: 26 Sex: F Admission Date: 05/25/2017 : 1990 Attending Physician: Benjy Pierre M.D. Admitting Physician: Benjy Pierre M.D. Primary Care Physician: Generic Doctor Not In System [facility] PROGRESS NOTES DATE 05/29/2017 DISCUSSION The patient continues her obnoxious child-like behaviors today demanding initiation of Klonopin and demanding initiation of a Nicoderm patch. I have explained to the patient that we cannot provide her with a Nicoderm patch until she has provided us with a urine for a beta HCG. Dictated by... Benjy Pierre M.D. CB/ny TD: 05/29/2017 16:27 JOB #: [id number] [facility] PROGRESS NOTES Page 1 of 1 X Benjy Pierre MD PROGRESS NOTE
--- NOTE | ~2017-05-25 | PA ---
Unit #: [id number] #: [id number] Patient: AISLINN MATTSON [id number] [facility] [address] [place] [address] [id number] MR#: [id number] NAME: AISLINN MATTSON ROOM: P116 Age: 26 Sex: F Admission Date: 05/25/2017 : 1990 Date of Assessment: 05/25/2017 Attending Physician: Benjy Pierre M.D. Admitting Physician: Benjy Pierre M.D. Primary Care Physician: Generic Doctor Not In System PSYCHIATRIC ASSESSMENT IDENTIFYING INFORMATION The patient is a 26-year-old white female admitted after presenting to this facility having been brought by police. The patient was claiming to be suicidal. CHIEF COMPLAINT None given. INFORMANT Chart. Patient could not be aroused for interview. HISTORY OF PRESENT ILLNESS The patient is a 26-year-old white female admitted to the [address] [place] [address] unit after been brought to this facility by police. The patient was reported history of suicidal ideation and has exhibited sexual inappropriate behavior refusing to remain clothed in the presence of male peers. The patient has a history of traumatic brain injury and asthma and has been homeless for some time. When seen today the patient cannot be aroused to complete interview. She had admitted to abuse of methamphetamine and spice prior to hospitalization. For more complete history of present illness, please refer to previously dictated notes. PAST PSYCHIATRIC HISTORY Reviewed, no changes. PAST MEDICAL HISTORY Reviewed, no changes. MEDICATIONS 1. Proventil 2. Symbicort 3. Celexa 4. Thorazine 5. MiraLAX 6. Lamictal 7. Colace 8. Claritin 9. Seroquel ALLERGIES Topiramate, [place], neoprene. FAMILY HISTORY Unit #: [id number] #: [id number] Patient: AISLINN MATTSON Reviewed no changes. SOCIAL HISTORY Reviewed, no changes. MENTAL STATUS EXAMINATION Examination at this time reveals the patient to be a morbidly obese somewhat disheveled white female who was dressed in the hospital garb. She is sleeping soundly having required a p.r.n. dose of Thorazine just prior to interview. She cannot be aroused for further evaluation. ASSETS AND LIABILITIES The patient's assets are to be assessed. Liabilities: Lack of resources, homelessness, ongoing substance use. DIAGNOSTIC IMPRESSION 1. Methamphetamine use disorder. 2. Hallucinogen use disorder. 3. Mood disorder unspecified. 4. Borderline personality disorder. 5. Malingering. 6. Morbid obesity. 7. Asthma. 8. History of traumatic brain injury. TREATMENT PLAN The patient remains hospitalized for safety and stabilization. As was the case during the patient's previous stay in the hospital I will discontinue previously prescribed psychotropic medications given the patient's admitted ongoing abuse of psychoactive medications as well as my feeling that she is probably not suffering from psychiatric illness that is treatable but is rather related to a combination of closed head injury and significant characterologic issues. ESTIMATED LENGTH OF STAY IN THE HOSPITAL Five to seven days. Dictated by... Benjy Pierre M.D. CB/jose TD: 05/25/2017 22:10 JOB #: [id number] PSYCHIATRIC ASSESSMENT Page 1 of 1 X Benjy Pierre MD X PSYCHIATRIC ASSESSMENT
--- NOTE | ~2017-05-25 | PN ---
Unit #: [id number] #: [id number] Patient: AISLINN MATTSON [id number] [facility] [address] [place] [address] [id number] MR#: [id number] NAME: AISLINN MATTSON ROOM: 16 Age: 26 Sex: F Admission Date: 05/25/2017 : 1990 Attending Physician: Benjy Pierre M.D. Admitting Physician: Benjy Pierre M.D. Primary Care Physician: Generic Doctor Not In System [facility] PROGRESS NOTES DATE 06/02/2017 DISCUSSION The patient has somehow obtained a marker and written all over her long. She is now on room lockout precautions having done so. She continues to exhibit symptoms of faint psychosis coupled with periods in which she politely asks to leave the hospital. I have told the patient to expect a.m. discharge if there are no further disruptive behavior or episodes. Dictated by... Benjy Pierre M.D. CB/antoinette TD: 06/02/2017 14:43 JOB #: [id number] [facility] PROGRESS NOTES Page 1 of 1 X Benjy Pierre MD PROGRESS NOTE
--- NOTE | ~2017-05-25 | PN ---
Unit #: [id number] #: [id number] Patient: AISLINN MATTSON [id number] [facility] [address] [place] [address] [id number] MR#: [id number] NAME: AISLINN MATTSON ROOM: 16 Age: 26 Sex: F Admission Date: 05/25/2017 : 1990 Attending Physician: Benjy Pierre M.D. Admitting Physician: Benjy Pierre M.D. Primary Care Physician: Generic Doctor Not In System [facility] PROGRESS NOTES DATE 05/26/2017 DISCUSSION The patient is abed today and refused to awaken for interview. She required p.r.n. medication again last evening after becoming physically threatening towards staff. Dictated by... Benjy Pierre M.D. CB/ny TD: 05/26/2017 18:13 JOB #: [id number] [facility] PROGRESS NOTES Page 1 of 1 X Benjy Pierre MD X PROGRESS NOTE
--- NOTE | ~2017-05-25 | PN ---
Unit #: [id number] #: [id number] Patient: AISLINN MATTSON [id number] [facility] [address] [place] [address] [id number] MR#: [id number] NAME: AISLINN MATTSON ROOM: 16 Age: 26 Sex: F Admission Date: 05/25/2017 : 1990 Attending Physician: Benjy Pierre M.D. Admitting Physician: Benjy Pierre M.D. Primary Care Physician: Generic Doctor Not In System [facility] PROGRESS NOTES DATE 06/01/2017 DISCUSSION The patient demands "something for my anxiety." I have explained to the patient, once again, that given her ongoing rampant substance use outside the hospital I did not feel comfortable beginning any new psychotropic medications for her. She is surprisingly understanding of this position and is requesting discharge, should she sustain progress this could take place as early as tomorrow. Dictated by... Benjy Pierre M.D. CB/cindy TD: 06/02/2017 06:21 JOB #: [id number] [facility] PROGRESS NOTES Page 1 of 1 X Benjy Pierre MD X PROGRESS NOTE
--- NOTE | ~2017-05-25 | PN ---
Unit #: [id number] #: [id number] Patient: AISLINN MATTSON [id number] [facility] [address] [place] [address] [id number] I MR#: [id number] NAME: AISLINN MATTSON ROOM: 16 Age: 26 Sex: F Admission Date: 05/25/2017 : 1990 Attending Physician: Benjy Pierre M.D. Admitting Physician: Benjy Pierre M.D. Primary Care Physician: Lola Doctor Not In System [facility] PROGRESS NOTES DATE 05/27/2017 DISCUSSION The patient is abed today with little participation within the therapeutic milieu. She complains of poor sleep at bedtime but is gently confronted with the fact that she has been sleeping much of the day. I have also spoken with the patient regarding the fact that we cannot safely reinitiate any psychotropic medications given her ongoing substance abuse. She states that she has been living "on the street." She continues to endorse hopelessness and suicidal ideation during today's interview. Dictated by... Benjy Pierre M.D. CB/antoinette TD: 05/27/2017 14:08 JOB #: [id number] [facility] PROGRESS NOTES Page 1 of 1 X Benjy Pierre MD X PROGRESS NOTE
--- NOTE | ~2017-05-25 | PN ---
Unit #: [id number] #: [id number] Patient: AISLINN MATTSON [id number] [facility] [address] [place] [address] [id number] I MR#: [id number] NAME: AISLINN MATTSON ROOM: [facility] Age: 26 Sex: F Admission Date: 05/25/2017 : 1990 Attending Physician: Benjy Pierre M.D. Admitting Physician: Benjy Pierre M.D. Primary Care Physician: Generic Doctor Not In System [facility] PROGRESS NOTES DATE 05/31/2017 DISCUSSION The patient has required multiple p.r.n.s as of yesterday after exhibiting out of control behavior this morning. She is sleeping soundly and does arouse for interview. Dictated by... Benjy Pierre M.D. CB/jose TD: 06/01/2017 00:02 JOB #: [id number] [facility] PROGRESS NOTES Page 1 of 1 X Benjy Pierre MD PROGRESS NOTE
--- NOTE | ~2017-05-25 | CO ---
Unit #: [id number] #: [id number] Patient: HAYLIE MATTSON [id number] [place] [address] [id number] I MR#: [id number] NAME: HAYLIE MATTSON ROOM: 16 Age: 26 Sex: F Admission Date: 05/25/2017 : 1990 Attending Physician: Benjy Pierre M.D. Primary Care Physician: Generic Doctor Not In System Consultation Date: 05/28/2017 CONSULTATION REPORT SUBJECTIVE Haylie is 26-year-old who has a large abrasion along her lateral almanzar. This area has gotten increasingly more red and has developed a slightly yellow discharge. She has had no recorded increased temperatures. We have been asked to assess and treat. OBJECTIVE GENERAL: Alert, obese, in no apparent distress. VITAL SIGNS: Blood pressure 120/70, heart rate 80, respirations 16, temperature 98.6. SKIN: Warm and dry without rash. She has a large abrasion along her right lateral almanzar. The area has increased localized redness and small amounts of yellow discharge. No odor is noted. ASSESSMENT Cellulitis. PLAN Cleocin 300 mg one p.o. t.i.d. x7 days. Keep the area clean with soap and water. Dictated by... Yaz Duarte P.A.-C. for Christina Mcmahan/lula TD: 06/02/2017 22:08 JOB #: [id number] CONSULTATION REPORT Page 1 of 1 X Yaz Duarte X CONSULTATION REPORT
[2017-05-30 09:52] LABS: URINE APPEARANCE CLEAR; URINE BILIRUBIN NEG (NEG); URINE BLOOD TRACE (NEG); URINE COLOR YELLOW; URINE GLUCOSE NEG (NEG); URINE KETONE NEG (NEG); URINE LEUKOCYTE ESTERASE NEG (NEG); URINE NITRATE NEG (NEG); URINE PROTEIN NEG (NEG); URINE SPECIFIC GRAVITY 1.013 (1.003-1.035); URINE UROBILINOGEN 0.2 MG/DL (NEG)
[2017-05-30 09:54] LABS: U HYALINE CASTS AUWI 0-2 /[LPF]; URINE BACTERIA AUWI NEG (NEGATIVE); URINE SQUAMOUS EPITHELIAL CELL OCC /[HPF]; UWBCS1 AUWI 0-2 (0-5)
== END 2017-06-03 15:34 | disposition home or self-care (01) | DRG 897 ==
LOC: P1S 10:23
PROVIDERS: Specialist
DX: F15.10 Other stimulant abuse, uncomplicated (principal); L03.115 Cellulitis of right lower limb; E66.01 Morbid (severe) obesity due to excess calories; F39 Unspecified mood [affective] disorder; F16.10 Hallucinogen abuse, uncomplicated; F60.3 Borderline personality disorder; Z76.5 Malingerer [conscious simulation]; J45.909 Unspecified asthma, uncomplicated; Z87.820 Personal history of traumatic brain injury; Z88.8 Allergy status to other drugs, medicaments and biological substances; Z59.0 Homelessness; Z68.34 Body mass index [BMI] 34.0-34.9, adult
CPT/HCPCS: 81003; 84703; J3230